=== PATIENT | female | born 1940 | race Caucasian/White ===

== ENCOUNTER → 2017-01-29 | Outpatient (CLI) | payer MEDICARE, BC ==
[~2017-01-29] MED LIST: ALBU1AER INH; ALEV220C; ALPR0.5T3 PO; AMLO5TAB2 PO; AMLO5TAB22 PO; ATEN-102 PO; ATEN50TA PO; CELE40TA PO; CHEL50TA PO; CINN500C13 PO; CINN500C7 PO; CINN500T PO; CITA40TA4 PO; CLON1 PO; CLON1TAB PO; COZA100T PO; CYAN1TAB24 PO; DICL1GEL TOPICAL; DICL1GEL7 TOPICAL; EXCETAB; HYDR-2768 PO; JANU50TA8 PO; LOSA100T2 PO; MUPI2OIN TOPICAL; OMEGCAP19 PO; OMEGCAP21 PO; OMEP20TA39 PO; OMEP40CA2 PO; OXYC-392 PO; POTA75TA2 PO; POTA99TA12 PO; POTA99TA4 PO; SIMV20TA PO; VENL-39 PO; VENL150C39 PO; VENL150T PO; VENL75 PO; VENL75CA44 PO; VENL75TA2 PO; VITA500T49 PO; WALKER WHEELS/F1 MIS; Z.0.WALKERFOLD; ZOCO40TA PO
[2017-01-29 15:00] LABS: AUTOMATED NEUTROPHIL # 10.7 TH/MM3 (1.8-7.7); BASOPHIL # 0.1 TH/MM3 (0-0.2); BASOPHIL % 0.4 % (0.0-2.0); EOSINOPHIL # 0.2 TH/MM3 (0-0.4); EOSINOPHIL % 1.3 % (0.0-4.0); HEMO FLAGS DIFF FINAL; LYMPH % 11.9 % (9.0-44.0); LYMPHOCYTE # 1.6 TH/MM3 (1.0-4.8); MEAN CELL VOLUME 97.4 FL (80.0-100.0); MEAN CORPUSCULAR HEMOGLOBIN 32.5 PG (27.0-34.0); MEAN CORPUSCULAR HGB CONC 33.3 % (32.0-36.0); MONO % 6.1 % (0.0-8.0); NEUT % 80.3 % (16.0-70.0); PLATELET COUNT 260 TH/MM3 (150-450); RED BLOOD COUNT 3.59 MIL/MM3 (4.00-5.30); RED CELL DISTRIBUTION WIDTH 21.6 % (11.6-17.2); WHITE BLOOD COUNT 13.3 TH/MM3 (4.0-11.0)
[2017-01-29 15:21] LABS: BICARBONATE 30.4 MEQ/L (21.0-32.0); POTASSIUM 3.5 MEQ/L (3.5-5.1)
[2017-01-29 16:21] LABS: BACTERIA, URINE RARE /hpf; BLOOD, URINE NEG (NEG); COMMENT (UR) CULT NOT INDICATED; CULTURE IF INDICATED CULT NOT INDICATED; GLUCOSE,URINE 300 mg/dL (NEG); KETONE, URINE NEG (NEG); MUCUS URINE FEW /lpf (OCC); NITRITE,URINE NEG (NEG); PH, URINE 5.5 (5.0-8.5); SQUAMOUS EPITHELIAL CELL URINE 2 /hpf (0-5); URINE COLOR YELLOW (YELLW/STRAW)
== END ==
LOC: CPRE 14:13
PROVIDERS: ATTEND Obstetrics & Gynecology
DX: N95.0 Postmenopausal bleeding (principal); D25.9 Leiomyoma of uterus, unspecified
CPT/HCPCS: 36415; 80048; 81001; 85025

== ENCOUNTER 2017-01-31 10:30 | Observation (INO) | payer MEDICARE, BC ==
[~2017-01-31] VITALS: Ht 157.5 cm; Wt 91.8 kg
[~2017-01-31 10:30] MED LIST changes: -ALBU1AER INH; -ALEV220C; -AMLO5TAB22 PO; -ATEN-102 PO; +BACITRACIN TOP OINT 15 GM TUBE ONE; +BUPIVACAINE LIPOSOME PF 1.3% 20 ML VIAL ONE; -CELE40TA PO; -CINN500C13 PO; -CINN500C7 PO; -CLON1 PO; -COZA100T PO; -CYAN1TAB24 PO; -DICL1GEL7 TOPICAL; -EXCETAB; -HYDR-2768 PO; +LIDOCAINE 1%/EPINEPHrine 1:100,000 SOLN 20 ML VIAL ONE; +LIDOCAINE HCL 1% 50 ML VIAL ONE; -OMEGCAP21 PO; -OMEP20TA39 PO; -OXYC-392 PO; +OXYTOCIN 10 UNIT/ML AMP ONE; -POTA99TA12 PO; -POTA99TA4 PO; -VENL-39 PO; -VENL150C39 PO; -VENL75 PO; -VENL75CA44 PO; -Z.0.WALKERFOLD; -ZOCO40TA PO
--- NOTE | 2017-01-31 11:36 | MH ---
cc: DINA LU DATE OF ADMISSION 01/31/2017 ADMISSION DIAGNOSIS Postmenopausal bleeding. Uterine fibroids. HISTORY OF PRESENT ILLNESS The patient is 76-year-old single white female para 3-0-1-3. She developed vaginal bleeding in October of 2015 and referred to me on 02/21/2016 Dr. Jin. Her Pap smear at that time was normal. Vaginal ultrasound performed on 08/17/2016 showed a uterus that measured 10.6 cm with probable fibroids. Underwent a hysteroscopy, D&C at [facility] in September 11, 2016 that showed benign endometrial tissue and benign ECC. She had persistent bleeding and now is admitted for repeat D&C. PAST MEDICAL HISTORY 1. Her past medical history is extensive. She had procedures that include bladder procedure uplift 1982. 2. She had D&C in 2002. 3. She had total knee right 2000 and 2002. 4. Shoulder repair, right 2007 and 2008 again. 5. She had a heart cath in 2004 and 2011. 6. D&C in 2002. ALLERGIES PENICILLIN , CODEINE, NEURONTIN, LYRICA AND SUDAFED. Past medical illnesses include: 1. Depression. 2. Sleep apnea. 3. Hypothyroidism. 4. Adult onset diabetes. MEDICATIONS She will bring in a list, includes: 1. Atenolol. 2. Omeprazole. 3. Simvastatin. 4. Amlodipine. 5. Losartan. 6. Lorazepam. 7. Voltaren. 8. . 9. Alprazolam. 10. Zofran. 11. Venlafaxine. 12. Potassium. 13. Janumet twice a day for diabetes control. OBSTETRICAL HISTORY Three vaginal deliveries, one spontaneous . SOCIAL HISTORY Retired. Alcohol occasional. Tobacco none. Drugs none. FAMILY HISTORY Noncontributory. PHYSICAL EXAMINATION GENERAL: Reveals an obese white female. VITAL SIGNS: Stable. HEENT: Examination is normal. CHEST: Clear. HEART: Regular rate. BREASTS: Symmetrical. ABDOMEN: Benign. PELVIC: The vagina is atrophic. Cervix normal. Uterus normal size, shape, anterior. Adnexa nonpalpable. Note, she had a nuclear stress test in July that was good and cleared for surgery. ASSESSMENT As above. PLAN She is now admitted for hysteroscopy, dilation and curettage, frozen section and laparoscopy, possible LASH BSO , possible GHASSAN BSO. The patient would like to proceed. MD RICK Dean/SHRUTI /9:04 PM /11:28 AM TAMIKO
[2017-01-31 11:51] VITALS: BP 147/84; PULSE 60; RESP 18; TEMP 97.9; O2SAT 94
[2017-01-31] MEDS ORDERED: ACETAMINOPHEN 1000 MG/100 ML VIAL IV ONE ×2 (12:02→16:17)
[2017-01-31] MEDS ORDERED: CLINDAMYCIN PHOS 600 MG/4 ML VIAL ONE (12:02)
[2017-01-31] MEDS ORDERED: SODIUM CHLORIDE 0.9% INJ 100 ML ONE (12:03)
[2017-01-31] MEDS ORDERED: CLINDAMYCIN 600 MG/NS 100 ML IV SCH ×2 (12:15)
[2017-01-31] MEDS ORDERED: ACETAMINOPHEN 1000 MG/100 ML VIAL IV SCH (12:15)
[2017-01-31] MEDS ORDERED: NEOSTIGMINE 3 MG/3 ML SYR IV ONE (14:10)
[2017-01-31] MEDS ORDERED: PROPOFOL 200 MG/20 ML AMP IV ONE (14:10)
[2017-01-31] MEDS ORDERED: ePHEDrine/NS 25 MG/5 ML SYR IV ONE (14:10)
[2017-01-31] MEDS ORDERED: ONDANSETRON HCL 4 MG/2 ML VIAL IV PUSH ONE (14:10)
[2017-01-31] MEDS ORDERED: fentaNYL CITRATE 250 MCG/5 ML AMP ONE (16:17)
[2017-01-31] MEDS ORDERED: MIDAZOLAM HCL 2 MG/2 ML VIAL ONE (16:17)
[2017-01-31] MEDS ORDERED: DICLOFENAC SODIUM 37.5 MG/ML VIAL IV PUSH ONE (17:57)
[2017-01-31] MEDS ORDERED: ONDANSETRON HCL 4 MG/2 ML VIAL IV PRN (18:30)
[2017-01-31] MEDS ORDERED: HYDROmorphone HCL PF 1 MG/ML VIAL IV PRN (18:30)
[2017-01-31] MEDS ORDERED: ZOLPIDEM TARTRATE 5 MG TAB PO PRN (18:30)
[2017-01-31] MEDS ORDERED: ONDANSETRON ODT 4 MG TAB PO PRN (18:30)
[2017-01-31] MEDS ORDERED: diphenhydrAMINE HCL 25 MG CAP PO PRN (18:30)
[2017-01-31] MEDS ORDERED: SODIUM CHLORIDE 0.9% FLUSH 5 ML FLUSH FLUSH PRN (18:30)
[2017-01-31] MEDS ORDERED: METOCLOPRAMIDE HCL 10 MG/2 ML VIAL IV PUSH PRN (18:30)
[2017-01-31] MEDS ORDERED: PROMETHAZINE HCL 25 MG TAB PO PRN (18:30)
[2017-01-31] MEDS ORDERED: ALPRAZolam 0.5 MG TAB PO PRN (19:15)
[2017-01-31] MEDS ORDERED: clonazePAM 1 MG TAB PO PRN (19:15)
[2017-01-31] MEDS ORDERED: *RESP: ALBUTEROL 2.5 MG/3 ML NEB (PRN) PERIprocedural Use ONLY NEB ONE (19:30)
[2017-01-31] MEDS: D5-1/2 NS + KCL 20 MEQ INJ 1,000 ML IV SCH (19:43)
--- NOTE | 2017-01-31 20:33 | RADRPT ---
EXAM DATE/TIME: 01/31/2017 20:11 [facility] COMPARISON: CHEST SINGLE AP, September 11, 2016, 5:42. INDICATIONS : Shortness of breath post operation. MEDICAL HISTORY : None. SURGICAL HISTORY : None. ENCOUNTER: Initial ACUITY: 1 day PAIN SCORE: 0/10 LOCATION: Bilateral chest FINDINGS: Cardiomegaly. Mild atelectatic changes seen at the left lung base and right perihilar region. Osseous structures demonstrated degenerative changes. No effusions. CONCLUSION: Atelectatic changes are noted. Giovani Starkey MD on January 31, 2017 at 20:31 Board Certified Radiologist. This report was verified electronically.
[2017-01-31 20:37] LABS: BLOOD GAS BASE EXCESS 0.7 mmol/L (-2-2); BLOOD GAS CARBOXYHEMOGLOBIN 1.6 % (0-4); BLOOD GAS HCO3 26 mmol/L (22-26); BLOOD GAS METHEMOGLOBIN 1.1 % (0-2); BLOOD GAS O2 HGB SATURATION 90 % (90-100); BLOOD GAS OXYGEN CONTENT 12.8 Vol % (12.0-20.0); BLOOD GAS PCO2 47 mmHg (38-42); BLOOD GAS PO2 72 mmHg (61-120); BLOOD GAS TOTAL HGB 10.1 G/DL (12.0-16.0); CRITICAL VALUE NO; DRAW SITE LT RADIAL; LITER FLOW 4 L/M; NUMBER OF ARTERIAL PUNCTURES 1; OXYGEN DEVICE NASAL CANNULA; STAT YES; TEMP CORR TO 98.6
[2017-01-31] MEDS: ACETAMINOPHEN 1000 MG/100 ML VIAL IV SCH (20:40)
[2017-01-31] MEDS: DICLOFENAC SODIUM 37.5 MG/ML VIAL IV PUSH SCH (20:41)
[2017-01-31 21:01] LABS: HEMATOCRIT 33.2 % (35.0-46.0); REVIEW FLAG FINAL
[2017-01-31 21:25] VITALS: BP 83/43; PULSE 72; RESP 16; TEMP 95.7; O2SAT 95
[2017-01-31 21:40] VITALS: BP 105/49
[2017-01-31 21:45] VITALS: O2SAT 94
[2017-01-31] MEDS: CITALOPRAM HYDROBROMIDE 40 MG TAB PO SCH (23:28)
[2017-01-31] MEDS: VENLAFAXINE HCL XR 75 MG CAP PO SCH (23:29)
[2017-01-31] MEDS: SODIUM CHLORIDE 0.9% FLUSH 5 ML FLUSH FLUSH SCH (23:29)
[2017-01-31] MEDS: ATENOLOL 50 MG TAB PO SCH (23:30)
[2017-01-31] MEDS ORDERED: GLUCAGON 1 MG/ML VIAL OTHER PRN (23:30)
[2017-01-31] MEDS ORDERED: DEXTROSE 50% IN WATER 50 ML VIAL(D50) IV PUSH PRN (23:30)
[2017-02-01] VITALS (8 sets, daily range): BP systolic 101–172; BP diastolic 49–84; PULSE 60–84; RESP 16–20; TEMP 95.6–98.4; O2SAT 90–95
[2017-02-01] MEDS: MEDIUM DOSE INSULIN NOVOLIN REGULAR SUPPLEMENTAL SCALE SQ SCH ×5 (00:01→21:57)
[2017-02-01] MEDS: DICLOFENAC SODIUM 37.5 MG/ML VIAL IV PUSH SCH ×3 (00:30→12:32)
[2017-02-01] MEDS: D5-1/2 NS + KCL 20 MEQ INJ 1,000 ML IV SCH ×3 (02:48→20:50)
[2017-02-01] MEDS: ACETAMINOPHEN 1000 MG/100 ML VIAL IV SCH ×2 (02:48→12:32)
[2017-02-01] MEDS: DOCUSATE SODIUM 100 MG CAP PO SCH ×2 (05:44→20:47)
[2017-02-01 08:10] LABS: AUTOMATED NEUTROPHIL # 10.7 TH/MM3 (1.8-7.7); BASOPHIL # 0.1 TH/MM3 (0-0.2); BASOPHIL % 0.4 % (0.0-2.0); EOSINOPHIL # 0.1 TH/MM3 (0-0.4); EOSINOPHIL % 0.9 % (0.0-4.0); HEMATOCRIT 29.2 % (35.0-46.0); HEMO FLAGS DIFF FINAL; LYMPH % 12.5 % (9.0-44.0); LYMPHOCYTE # 1.7 TH/MM3 (1.0-4.8); MEAN CELL VOLUME 99.1 FL (80.0-100.0); MEAN CORPUSCULAR HEMOGLOBIN 32.8 PG (27.0-34.0); MEAN CORPUSCULAR HGB CONC 33.1 % (32.0-36.0); MONO % 7.1 % (0.0-8.0); NEUT % 79.1 % (16.0-70.0); PLATELET COUNT 216 TH/MM3 (150-450); RED BLOOD COUNT 2.94 MIL/MM3 (4.00-5.30); RED CELL DISTRIBUTION WIDTH 21.8 % (11.6-17.2); WHITE BLOOD COUNT 13.6 TH/MM3 (4.0-11.0)
[2017-02-01 08:43] LABS: BICARBONATE 26.9 MEQ/L (21.0-32.0); POTASSIUM 3.1 MEQ/L (3.5-5.1)
[2017-02-01] MEDS: POTASSIUM CHLORIDE 10 MEQ CONTROLLED RELEASE TAB PO SCH (09:56)
[2017-02-01] MEDS: PANTOPRAZOLE SOD 40 MG DELAYED RELEASE TAB PO SCH (09:56)
[2017-02-01] MEDS: LOSARTAN 50 MG TAB PO SCH (10:00)
[2017-02-01] MEDS: ATENOLOL 50 MG TAB PO SCH ×2 (10:00→20:49)
[2017-02-01] MEDS: SODIUM CHLORIDE 0.9% FLUSH 5 ML FLUSH FLUSH SCH ×2 (10:00→20:50)
[2017-02-01] MEDS: HYDROCHLOROTHIAZIDE 25 MG TAB PO SCH (10:00)
[2017-02-01] MEDS: amLODIPine BESYLATE 5 MG TAB PO SCH (10:00)
[2017-02-01] MEDS ORDERED: POTASSIUM CHLORIDE 25 MEQ EFFERVESCENT TAB PO ONE (11:15)
--- NOTE | 2017-02-01 12:47 | MB ---
cc: TI HARRIS MD DATE OF CONSULTATION: 02/01/2017 1942 REASON FOR CONSULTATION Medical management. HISTORY OF PRESENT ILLNESS This is a 76-year-old white female who is status post repeat D&C done on 01/31/2017. She is currently resting in the bed, alert, oriented and a fair historian. The patient is noted to have sleep apnea with COPD. She is currently wearing a C-PAP at night for her rest. She does have some exertional shortness of breath but none at rest. The patient is alert, can answer simple questions, a fair historian. According to the record the patient has had vaginal bleeding since 2014 with a normal Pap smear. She had a vaginal ultrasound which showed probable fibroids, had a D&C in August of 2016 and has continued with persistent bleeding. [facility] hospitalists will be involved for her medical needs. PAST MEDICAL HISTORY 1. Degenerative joint disease. 2. Osteoarthritis. 3. Cardiovascular disorders. 4. COPD. 5. Obstructive sleep apnea. 6. Hypothyroidism. 7. Diabetes mellitus type 2. 8. Depression. 9. Anxiety. PAST SURGICAL HISTORY 1. Right total knee. 2. Shoulder repair. 3. Multiple heart caths. 4. D&C, multiple. 5. Bladder up lift in 1982. ALLERGIES GABAPENTIN, LYRICA, NEURONTIN, PENICILLIN, SUDAFED AND TYLENOL #3. MEDICATIONS Medications listed in the record: 1. Atenolol. 2. Omeprazole. 3. Simvastatin. 4. Amlodipine. 5. Losartan. 6. Lorazepam. 7. Voltaren. 8. Xanax. 9. Zofran. 10. Venlafaxine. 11. Potassium. 12. Januvia. SOCIAL HISTORY No tobacco, no illicit drugs. Rare social alcohol. The patient is retired. REVIEW OF SYSTEMS A 12-point review was done, some information limited due to the patient's fair history given. Currently she has some exertional dyspnea and none at rest. She is status post surgical event as listed, otherwise systems are negative. PHYSICAL EXAMINATION VITAL SIGNS: Temperature is 97.5, pulse 63, respirations 20, blood pressure 114/57, O2 sat 94, now on 2 liters nasal cannula. GENERAL: Obese, white female, looks to be her stated age, resting in the bed. SKIN: Skin is pink, warm and dry. HEENT: Atraumatic, normocephalic. No scleral icterus. PERRLA. Mucous membranes are moist. NECK: Neck is supple. HEART: Heart sounds, S1-S2, regular rate and rhythm. No murmurs, rubs or gallops appreciated. PULMONARY: Lung sounds are essentially clear anteriorly and posteriorly in her upper lobes. Decreased breath sounds and low volumes noted lower lobes. ABDOMEN: Abdomen is round, soft, nontender, nondistended. Active bowel sounds. MUSCULOSKELETAL: She can move her extremities with purpose. 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 NEUROLOGIC: She is alert, a fair historian. Speech is clear. PSYCHIATRIC: Appropriate mood and affect. DIAGNOSTIC DATA Abnormals include white count 13.6, RBC 2.94, hemoglobin 9.7, hematocrit 29.2, normal platelet count at 216, neutrophil absolute 79.1. Chemistry sodium 142, potassium 3.1, chloride 103, BUN 23, creatinine 0.94. Random glucose 135, calcium 7.8. IMAGING STUDIES Chest x-ray done on the shows some atelectasis. ASSESSMENT Diabetes mellitus, mildly uncontrolled, hypokalemia, COPD, acute kidney injury with dehydration, GERD, anxiety. PLAN Our plan is to monitor her labs and her vital signs and any abnormal labs that need to be treated. This a.m. we will treat her hypokalemia with potassium p.o. and recheck her labs in the morning. The patient is on Protonix p.o. daily, regular insulin with Accu-Cheks and sliding scale as warranted. Her medications have been reconciled and continued. She received Klonopin and Xanax p.r.n., pain management. The patient is status post D&C. 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 Please note that the patient did have a nuclear stress test back in July that was within normal limits. This is part of what cleared her for the surgery. We will follow. Dictated by: LORRIE Wyatt MD LAURYN Chiu/RUDDY /11:05 AM /12:43 PM pt is seen & examined d/w PT d/w Perla thank for the consult see orders see consult will f/u Ti Harris MD Feb 01, 2017 17:27 MTDD
[2017-02-01] MEDS ORDERED: ALPRAZolam 0.5 MG TAB PO PRN (14:45)
[2017-02-01] MEDS: VENLAFAXINE HCL XR 75 MG CAP PO SCH ×2 (16:25→20:49)
--- NOTE | 2017-02-01 17:27 | HHI.PR ---
Objective Objective Results - Vital Signs Date Time Temp Pulse Resp B/P Pulse Ox O2 Delivery O2 Flow Rate FiO2 02/01/17 16:33 16 02/01/17 15:50 98.4 80 20 135/73 90 02/01/17 15:35 16 02/01/17 15:35 16 02/01/17 11:50 97.0 71 20 101/54 95 02/01/17 10:36 93 Nasal Cannula 2.00 02/01/17 07:50 97.5 63 20 114/57 94 02/01/17 04:00 95.6 60 16 111/63 94 02/01/17 00:00 97.1 73 16 121/49 95 01/31/17 21:45 94 Nasal Cannula 2.00 01/31/17 21:40 105/49 01/31/17 21:25 95.7 72 16 83/43 95 01/31/17 20:45 98.3 68 15 124/72 96 Nasal Cannula 4 01/31/17 20:30 71 16 112/57 96 Nasal Cannula 4 01/31/17 20:15 69 12 112/57 94 Nasal Cannula 4 01/31/17 20:00 70 12 129/50 93 Nasal Cannula 4 01/31/17 19:45 69 14 122/71 90 Nasal Cannula 4 01/31/17 19:30 68 15 131/64 88 Aerosol Mask 01/31/17 19:15 86 16 126/63 89 Simple Mask 8 01/31/17 19:04 98.2 120 15 125/67 87 Simple Mask 8 I/O 01/31/17 01/31/17 01/31/17 02/01/17 02/01/17 02/01/17 07:00 15:00 23:00 07:00 15:00 23:00 Intake Total 1900 ml 950 ml 461 ml Output Total 450 ml 0 ml 280 ml Balance 1450 ml 950 ml 461 ml -280 ml Intake Oral 200 ml 150 ml 461 ml IV Total 800 ml Other 1700 ml Output Urine Total 300 ml 0 ml 280 ml Estimated Blood Loss 50 ml Other 100 ml Bladder Scan Volume Amount 256 ml # Bowel Movements 0 0 Result Diagram: 02/01/17 0625 02/01/17 0625 Other Results Laboratory Tests Test 01/31/17 01/31/17 02/01/17 20:16 20:25 06:25 Hemoglobin 10.8 9.7 Hematocrit 33.2 29.2 Blood Gas Puncture Site LT RADIAL Blood Gas Patient Temperature 98.6 Blood Gas HCO3 26 Blood Gas Base Excess 0.7 Blood Gas Oxygen Saturation 90 Arterial Blood pH 7.35 Arterial Blood Partial 47 Pressure CO2 Arterial Blood Partial 72 Pressure O2 Arterial Blood Oxygen Content 12.8 Arterial Blood 1.6 Carboxyhemoglobin Arterial Blood Methemoglobin 1.1 Blood Gas Hemoglobin 10.1 Oxygen Delivery Device NASAL CANNULA Blood Gas Liter Flow 4 White Blood Count 13.6 Red Blood Count 2.94 Mean Corpuscular Volume 99.1 Mean Corpuscular Hemoglobin 32.8 Mean Corpuscular Hemoglobin 33.1 Concent Red Cell Distribution Width 21.8 Platelet Count 216 Mean Platelet Volume 9.5 Neutrophils (%) (Auto) 79.1 Lymphocytes (%) (Auto) 12.5 Monocytes (%) (Auto) 7.1 Eosinophils (%) (Auto) 0.9 Basophils (%) (Auto) 0.4 Neutrophils # (Auto) 10.7 Lymphocytes # (Auto) 1.7 Monocytes # (Auto) 1.0 Eosinophils # (Auto) 0.1 Basophils # (Auto) 0.1 CBC Comment DIFF FINAL Differential Comment Sodium Level 142 Potassium Level 3.1 Chloride Level 103 Carbon Dioxide Level 26.9 Anion Gap 12 Blood Urea Nitrogen 23 Creatinine 0.94 Estimat Glomerular Filtration 58 Rate Random Glucose 135 Calcium Level 7.8 Physical Exam Physical Exam pt is seen & examined d/w PT d/w Perla thank for the consult see orders see consult will f/u Phoebe Harris MD Feb 01, 2017 17:27
[2017-02-01] MEDS: metFORMIN HCL 500 MG TAB PO SCH (20:48)
[2017-02-01] MEDS: CITALOPRAM HYDROBROMIDE 40 MG TAB PO SCH (20:49)
[2017-02-01] MEDS ORDERED: NON-FORMULARY DRUG (Sitagliptin-Metformin (Janumet) 1 TAB) PO SCH (21:00)
[2017-02-01] MEDS ORDERED: VENLAFAXINE HCL XR 75 MG CAP PO SCH (21:00)
[2017-02-01] MEDS ORDERED: ATENOLOL 50 MG TAB PO SCH (21:00)
[2017-02-01] MEDS ORDERED: CITALOPRAM HYDROBROMIDE 40 MG TAB PO SCH (21:00)
[2017-02-02] VITALS: BP 107/60; PULSE 72; RESP 18; TEMP 97.3; O2SAT 91
[2017-02-02] MEDS: ACETAMINOPHEN 1000 MG/100 ML VIAL IV SCH (03:05)
[2017-02-02 04:00] VITALS: BP 119/57; PULSE 65; RESP 18; TEMP 96.7; O2SAT 90
[2017-02-02] MEDS: DOCUSATE SODIUM 100 MG CAP PO SCH (05:52)
[2017-02-02] MEDS: MEDIUM DOSE INSULIN NOVOLIN REGULAR SUPPLEMENTAL SCALE SQ SCH ×2 (06:17→13:00)
[2017-02-02 07:47] LABS: BICARBONATE 26.6 MEQ/L (21.0-32.0); POTASSIUM 4.1 MEQ/L (3.5-5.1)
[2017-02-02 08:00] VITALS: BP 136/83; PULSE 71; RESP 16; TEMP 97.1; O2SAT 92
[2017-02-02] MEDS: amLODIPine BESYLATE 5 MG TAB PO SCH (08:40)
[2017-02-02] MEDS: ATENOLOL 50 MG TAB PO SCH (08:40)
[2017-02-02] MEDS: LOSARTAN 50 MG TAB PO SCH (08:40)
[2017-02-02] MEDS: POTASSIUM CHLORIDE 10 MEQ CONTROLLED RELEASE TAB PO SCH (08:40)
[2017-02-02] MEDS: metFORMIN HCL 500 MG TAB PO SCH (08:40)
[2017-02-02] MEDS: HYDROCHLOROTHIAZIDE 25 MG TAB PO SCH (08:40)
[2017-02-02] MEDS: VENLAFAXINE HCL XR 75 MG CAP PO SCH (08:41)
[2017-02-02] MEDS: PANTOPRAZOLE SOD 40 MG DELAYED RELEASE TAB PO SCH (08:41)
[2017-02-02] MEDS: SODIUM CHLORIDE 0.9% FLUSH 5 ML FLUSH FLUSH SCH (08:46)
[2017-02-02] MEDS ORDERED: VENLAFAXINE HCL XR 75 MG CAP PO SCH (09:00)
[2017-02-02] MEDS ORDERED: clonazePAM 1 MG TAB PO SCH (09:00)
[2017-02-02] MEDS ORDERED: PRAVASTATIN SOD 40 MG TAB PO SCH (09:00)
[2017-02-02] MEDS ORDERED: amLODIPine BESYLATE 5 MG TAB PO SCH (09:00)
[2017-02-02] MEDS ORDERED: NON-FORMULARY DRUG (Zinc Gluconate (Zinc) 1 TAB) PO SCH (09:00)
[2017-02-02] MEDS ORDERED: NON-FORMULARY DRUG (Losartan-Hydrochlorothiazide 1 TAB) PO SCH (09:00)
[2017-02-02 09:50] VITALS: O2SAT 94
[2017-02-02 12:00] VITALS: BP 135/65; PULSE 77; RESP 16; TEMP 96.5; O2SAT 94
--- NOTE | 2017-02-02 12:34 | HHI.FF ---
Face to Face Verification Diagnosis: (1) Diabetes 1.5, managed as type 2 (2) COPD (chronic obstructive pulmonary disease) (3) Anxiety (4) Hypokalemia (5) ROBERT (acute kidney injury) (6) GERD (gastroesophageal reflux disease) (7) Debility Physical Therapy Order: Evaluate and Treat, Improve ambulation, Strength and gait training Occupational Therapy Order: Evaluate and Treat, Improve ADL Home Health Nursing Order: Signs/symptoms of disease process Diabetic education Oxygen administration education Nursing assessment with vital signs Instructions: And some questions about disease process Review meds if needed monitor vital signs and O2 sats I have seen patient Hanane Kam on 02/02/17. My clinical findings support the need for the requested home health care services because: Multi-medical comorbidities and debility Ltd mobility - disease progression Deconditioned w/ increased weakness I certify that my clinical findings support that this patient is homebound because: Of her multi-medical comorbidities and debility. Monitoring of vital signs and encouragement Impaired cognitive ability/safety Unsteady gait/balance Perla Sheppard Feb 02, 2017 12:34
[2017-02-02] MEDS ORDERED: OXYC-392 PO (13:12)
--- NOTE | 2017-02-02 13:13 | HHI.FF ---
Face to Face Verification Diagnosis: (1) Diabetes 1.5, managed as type 2 (2) COPD (chronic obstructive pulmonary disease) (3) Anxiety (4) Debility Physical Therapy Order: Evaluate and Treat, Improve ambulation, Strength and gait training I have seen patient Hanane Kam on 02/02/17. My clinical findings support the need for the requested home health care services because: Ltd mobility - disease progression Deconditioned w/ increased weakness I certify that my clinical findings support that this patient is homebound because: Post-op weakness Unsteady gait/balance Phoebe Harris MD Feb 02, 2017 13:13
--- NOTE | 2017-02-02 13:35 | HHI.PR ---
Subjective History of Present Illness feels better pain is in control/pain meds are helping No N/V appetite is ok little weak / need some assistance w ambulation asking for HHC at home offers no other c/o daughter is at bedside (Phoebe Harris MD) Subjective Remarks Patient sitting up on side of bed Alert Cooperative No shortness of breath Hoping to go home (Perla Sheppard) Review of Systems Constitutional Constitutional: Weakness (improved, no shortness of breath. 10 point ROS done , positives noted are shortness of breath, exertional otherwise systems are negative) (Perla Sheppard) Vitals/Results Intake & Output 02/01/17 02/01/17 02/02/17 15:00 23:00 07:00 Intake Total 461 ml 1810 ml 550 ml Output Total 0 ml 280 ml 600 ml Balance 461 ml 1530 ml -50 ml Intake Oral 461 ml IV Total 1810 ml 550 ml Output Urine Total 0 ml 280 ml 600 ml Bladder Scan Volume Amount 256 ml # Bowel Movements 0 Vital Signs Vital Signs Date Time Temp Pulse Resp B/P Pulse Ox O2 Delivery O2 Flow Rate FiO2 02/02/17 12:00 96.5 77 16 135/65 94 02/02/17 09:50 94 21 02/02/17 08:00 97.1 71 16 136/83 92 02/02/17 04:00 96.7 65 18 119/57 90 02/02/17 00:00 97.3 72 18 107/60 91 02/01/17 20:49 96.9 84 16 172/84 94 02/01/17 20:01 94 21 02/01/17 16:33 16 02/01/17 15:50 98.4 80 20 135/73 90 02/01/17 15:35 16 02/01/17 15:35 16 (Phoebe Harris MD) CBC/BMP: 02/01/17 0625 02/02/17 0619 Lab Results Laboratory Tests Test 02/02/17 06:19 Sodium Level 140 MEQ/L Potassium Level 4.1 MEQ/L Chloride Level 104 MEQ/L Carbon Dioxide Level 26.6 MEQ/L Anion Gap 9 MEQ/L Blood Urea Nitrogen 21 MG/DL Creatinine 0.91 MG/DL Estimat Glomerular Filtration 60 ML/MIN Rate Random Glucose 134 MG/DL Calcium Level 8.0 MG/DL (Phoebe Harris MD) Physical Exam General General Appearance: No Acute Distress, Comfortable, Obese (Phoebe Harris MD) General Appearance: Well Developed, Well Nourished, No Acute Distress, Comfortable Appearance Remarks Uses BiPAP at night (Perla Sheppard) Eyes Eye Exam: Pupils Equal, Sclera White, Extraocular Movement Intact (Phoebe Harris MD) Eye Exam: Pupils Equal, Pupils Reactive (Perla Sheppard) Ears & Nose Ears & Nose Exam: Nasal Mucosa [place] (Phoebe Harris MD) Ears & Nose Exam: Nasal Mucosa [place] (Perla Sheppard) Throat Throat Exam: Oral Mucosa [place] & Moist (Phoebe Harris MD) Throat Exam: Oral Mucosa [place] & Moist (Perla Sheppard) Neck Neck Exam: Neck Supple (Phoebe Harris MD) Neck Exam: Neck Supple (Perla Sheppard) Pulmonary Resp Exam: Clear Bilaterally, Breath Sounds Equal, No Distress (Phoebe Harris MD) Resp Exam: Diminished Breath Sounds (at bases, otherwise clear) (Perla Sheppard) Cardiology CV Exam: Regular, Normal Sinus Rhythm (Phoebe Harris MD) CV Exam: Regular (Perla Sheppard) Gastrointestinal/Abdomen GI Exam: Soft, Bowel Sounds Present (Phoebe Harris MD) GI Exam: Soft, Non-Tender, Bowel Sounds Present (Perla Sheppard) Genitourinary Exam: Clear Urine (Perla Sheppard) Musculoskeletal MS Exam: Joints Intact (Perla Sheppard) Integumentary Skin Exam: Warm, Intact (Phoebe Harris MD) Skin Exam: Warm, Dry, Intact (Perla Sheppard) Extremeties Extremities Exam: No Edema, Pedal Pulses Palpable (Phoebe Harris MD) Extremities Exam: No Edema (Perla Sheppard) Neurologic Neuro Exam: Alert, Awake, Oriented, Speech Clear, Moving All Extremities (Phoebe Harris MD) Neuro Exam: Alert, Awake, Oriented, Speech Clear, Moving All Extremities ( Perla Sheppard) Assessment/Plan Assessment/Plan ASSESSMENT s/p p-ost menopausal bleeding/ Uterine Fibroids s/p laparoscopic Hysterectomy w BSO anemia Diabetes mellitus, mildly uncontrolled, hypokalemia, COPD, acute kidney injury with dehydration, GERD, anxiety. PLAN analgesic diabetic diet accu checks qac & qhs w SSI BP control pepcid stool softener/prn laxative cont current tx medically stable for d/c d/c home w [facility] dw PT & daughter will sign off/ available prn (Phoebe Harris MD) Assessment/Plan Stable for discharge Patient uses BiPAP at night, no shortness of breath at rest Labs and vital signs reviewed., hemoglobin 9.7, stable Patient will follow-up with PCP, [employer] after discharge (Perla Sheppard) Phoebe Harris MD Feb 02, 2017 13:35 Perla Sheppard Feb 02, 2017 14:57
--- NOTE | 2017-02-03 12:41 | MP ---
cc: DINA LU DATE OF SURGERY: 01/31/2017 PREOPERATIVE DIAGNOSIS: Postmenopausal bleeding, uterine fibroids. POSTOPERATIVE DIAGNOSIS: Postmenopausal bleeding, uterine fibroids. OPERATIVE PROCEDURE PERFORMED: D&C, frozen section followed by a laparoscopic supracervical hysterectomy and bilateral salpingo-oophorectomy. SURGEON: Dina Lu MD. GENERAL COUNSEL: LORRIE Hager. ANESTHESIA: General ET ESTIMATED BLOOD LOSS FOR THE PROCEDURE: About 50 cc. FLUIDS: 1.3 liters of crystalloid. DESCRIPTION OF THE PROCEDURE IN DETAIL / OBJECTIVE FINDINGS: Following induction of adequate general endotracheal anesthesia, the patient was prepped and draped supine on the operating table in the dorsal lithotomy position in the usual sterile fashion with the bladder being drained by Purcell catheterization. Examination under anesthesia revealed about a 12 week sized anterior uterus. A heavy weighted speculum was placed in the posterior fornix of the vagina. The anterior lip of the cervix was grasped with a single-tooth tenaculum. Cervix and uterus sounded to 10 cm. The cervix was then dilated with a #18 Hanks dilator. Endocervical curettings were obtained with a small serrated curette for permanent study and endometrium with a small sharp curette for frozen section. The instruments were removed. The operators gloves were changed. The abdomen was opened through a 3 cm curving infraumbilical incision using a knife to cut down through the skin to the fascia. The fascia was opened transversely, stripped from the muscles, the rectus muscle in the midline and the peritoneum opened sharply without incident. The GelPort was placed. Laparoscope inserted. A #5 port was placed in the left lower quadrant and the air seal port in the right lower quadrant. The uterus was about 12 weeks sized, multiple fibroids. There were adhesions of the bladder, peritoneum to the dome of the uterus. These were lysed sharply with the harmonic scalpel. The cul-de-sacs were clear. The liver edge was normal. Working first on the left, the Harmonic scalpel was used to take the left utero-ovarian pedicle, left round ligament, left broad ligament and left sided bladder flap and the left uterine vessels with the same on the right. The Harmonic scalpel was used to amputate the fundus from the cervix after frozen section returned benign. The fundus was extracted intact in a pouch through the GelPort site. Each tube and ovary was taken, first from the left and then from the right with the Harmonic scalpel and extracted intact through the GelPort site. Irrigation was now performed. Low pressure tests were done in the Trendelenburg position and there was no bleeding. The ureters were inspected for good peristalsis. Low pressure test revealed no bleeding so the operative sites were coated with thrombin tissue sealer. The scope was removed. The GelPort was removed. The peritoneum was sutured with running 2-0 Vicryl, the fascia with a running locking stitch of #0 Vicryl corner to midline and tied, the subcutaneous with running 3-0 Vicryl and the skin with running subcuticular 3-0 Monocryl. The scope was now reinserted through the lower port site and used to inspect the GelPort site which was well closed with no bleeding and no entrapment. The pelvis was inspected. There was no bleeding. The scope was removed. The ports were removed and the wound was sutured with 3-0 Monocryl. Dermabond applied. All counts were correct. The patient was taken out of the stirrups and she was awakened and taken to the recovery room in good condition. MD RICK Dean/FABIAN /6:32 PM /12:25 PM
--- NOTE | 2017-02-13 13:37 | MD ---
cc: DINA LU M.D. ADMISSION DATE: 01/31/2017 DISCHARGE DATE: 02/02/2017 ADMISSION DIAGNOSES Postmenopausal bleeding. Uterine fibroids. POSTOPERATIVE DIAGNOSES Postmenopausal bleeding. Uterine fibroids. Endometrial polyps. Adenomyosis. PROCEDURE D&C, frozen section followed by SIMIN and DAVIDO on 01/31/2017. HISTORY OF PRESENT ILLNESS A 76-year-old single white female para 3-0-1-3, has had vaginal bleeding since October of 2015. She was seen by me on 02/21/2016, Pap was normal. Ultrasound showed enlarged uterus with fibroids. Hysteroscopy and D&C at [facility] on 09/11/2016 returned benign. She has continued bleeding. HOSPITAL COURSE She was admitted, underwent the above-mentioned procedures, had gradual advancement of diet and activity. She had bladder atony. She was seen by the hospitalist. She was discharged home in excellent condition on 02/02/2017, advised NPV, light activity and return to see me in two weeks. She will have home health care. She will take her routine meds at home, was given prescription for Percocet 5, 1-2 p.o. q.4 hours p.r.n. pain, #60; and Zofran ODT 8 mg p.o. q.8 hours p.r.n. nausea and vomiting, #15. Dina Lu MD JAW/SSB /6:49 AM /1:32 PM
== END 2017-02-02 15:07 | disposition home or self-care (01) ==
LOC: HSDC 10:30 → HSDI 18:27 → HOCA 21:02
PROVIDERS: ADMIT Obstetrics & Gynecology; ATTEND Obstetrics & Gynecology
DX: D25.9 Leiomyoma of uterus, unspecified (principal); N83.202 Unspecified ovarian cyst, left side; N83.201 Unspecified ovarian cyst, right side; N95.0 Postmenopausal bleeding; E87.6 Hypokalemia; N17.9 Acute kidney failure, unspecified; E86.0 Dehydration; K21.9 Gastro-esophageal reflux disease without esophagitis; F41.9 Anxiety disorder, unspecified; E11.65 Type 2 diabetes mellitus with hyperglycemia; N84.0 Polyp of corpus uteri; N80.0 Endometriosis of uterus; F32.9 Major depressive disorder, single episode, unspecified; E03.9 Hypothyroidism, unspecified; E66.9 Obesity, unspecified; G47.33 Obstructive sleep apnea (adult) (pediatric); J44.9 Chronic obstructive pulmonary disease, unspecified; Z79.899 Other long term (current) drug therapy; Z68.37 Body mass index [BMI] 37.0-37.9, adult; Z88.0 Allergy status to penicillin; Z88.2 Allergy status to sulfonamides; Z88.1 Allergy status to other antibiotic agents; Z88.8 Allergy status to other drugs, medicaments and biological substances
CPT/HCPCS: 00840; 36600; 58542; 71010; 80048; 82805; 82948; 85014; 85018; 85025; 88305; 88307; 88311; 88331; 94150; 94664; C9290; G0378; J0131; J1130; J2250; J2405; J2710; J3010; J3480; J7613; J2590

== ENCOUNTER → 2017-02-20 | Outpatient (CLI) | payer MEDICARE, BC ==
[~2017-02-20] MED LIST changes: -BACITRACIN TOP OINT 15 GM TUBE ONE; -BUPIVACAINE LIPOSOME PF 1.3% 20 ML VIAL ONE; +CINN500C13 PO; -CLON1TAB PO; +CYAN1TAB24 PO; +DICL1GEL7 TOPICAL; -LIDOCAINE 1%/EPINEPHrine 1:100,000 SOLN 20 ML VIAL ONE; -LIDOCAINE HCL 1% 50 ML VIAL ONE; +OXYC-392 PO; -OXYTOCIN 10 UNIT/ML AMP ONE; +POTA99TA4 PO; +VENL150C39 PO; +VENL75CA44 PO
[2017-02-20 15:01] LABS: ALT (GPT) 25 U/L (10-53); ANION GAP 10 MEQ/L (5-15); AST (GOT) 16 U/L (15-37); BICARBONATE 31.1 MEQ/L (21.0-32.0); BLOOD UREA NITROGEN 24 MG/DL (7-18); CHLORIDE 104 MEQ/L (98-107); GLOMERULAR FILTRATION RATE 58 ML/MIN (>89); GLUCOSE,FASTING 146 MG/DL (74-99); POTASSIUM 3.7 MEQ/L (3.5-5.1); SODIUM (NA) 145 MEQ/L (136-145)
[2017-02-20 15:10] LABS: ALKALINE PHOSPHATASE 80 U/L (45-117); FREE T4 1.01 NG/DL (0.76-1.46); HDL CHOLESTEROL 43.3 MG/DL (40.0-60.0); LDL CHOLESTEROL 70 MG/DL (0-99); TOTAL BILIRUBIN ADULT 0.6 MG/DL (0.2-1.0)
[2017-02-20 16:56] LABS: HEMOGLOBIN A1a 1.3 %; HEMOGLOBIN A1b 2.1 %; HEMOGLOBIN Ao 82.8 %; HEMOGLOBIN LA1C 2.3 %; HEMOGLOBIN P3 4.1 %
== END ==
LOC: ELAB 11:42
PROVIDERS: ATTEND Internal Medicine Endocrinology, Diabetes & Metabolism
DX: E03.9 Hypothyroidism, unspecified (principal); E11.9 Type 2 diabetes mellitus without complications; E55.9 Vitamin D deficiency, unspecified; I10 Essential (primary) hypertension; E78.5 Hyperlipidemia, unspecified
CPT/HCPCS: 36415; 80053; 80061; 82306; 83036; 84439; 84443

== ENCOUNTER 2017-04-17 15:54 | Inpatient (IN) | payer MEDICARE, BC ==
[2017-04-17] VITALS (11 sets, daily range): BP systolic 91–159; BP diastolic 52–96; PULSE 86–137; RESP 20–28; TEMP 98–100.2; O2SAT 93–100
[~2017-04-17] VITALS: Ht 157.5 cm; Wt 96.4 kg
[~2017-04-17 15:54] MED LIST changes: -CINN500C13 PO; -CYAN1TAB24 PO; -DICL1GEL7 TOPICAL; -POTA99TA4 PO; -VENL150C39 PO; -VENL75CA44 PO
[2017-04-17] MEDS ORDERED: SODIUM CHLOR 0.9% 1000 ML INJ 1,000 ML IV ONE ×5 (16:30→20:37)
--- NOTE | 2017-04-17 16:37 | RADRPT ---
EXAM DATE/TIME: 04/17/2017 16:24 [facility] COMPARISON: CHEST SINGLE AP, September 11, 2016, 5:42. CHEST SINGLE AP, January 31, 2017, 20:11. INDICATIONS : Shortness of breath, nausea, vomiting. MEDICAL HISTORY : Hypertension. Diabetes mellitus type II. SURGICAL HISTORY : None. ENCOUNTER: Initial ACUITY: 1 day PAIN SCORE: 0/10 LOCATION: Bilateral chest FINDINGS: Portable AP view of the chest demonstrates a normal-sized cardiac silhouette. There is a retrocardiac air-containing mass. Linear opacities are present at both lung bases. No pleural effusion, airspace consolidation, or pneumothorax is visualized. The bones and soft tissues demonstrate no acute finding . CONCLUSION: 1. Atelectasis at both lung bases. No acute cardiopulmonary abnormality is identified. 2. Large hiatal hernia. Osvaldo Santana MD on April 17, 2017 at 16:34 Board Certified Radiologist. This report was verified electronically.
--- NOTE | 2017-04-17 16:40 | PD ---
HPI Chief Complaint: vomiting Time Seen by Provider: 16:06 Travel History International Travel<30 days: No Contact w/Intl Traveler<30days: No Traveled to known affect area: No History of Present Illness HPI 76-year-old female presents by ambulance with shortly prior to arrival while she was at [facility] getting her nails done she developed vomiting and shortness of breath. She states she had 4 episodes of vomiting. She was tachycardic in route in the 130s. Her blood pressures were stable till when she got here her last blood pressure was a systolic of 70. She was given 4 mg of Zofran. Patient denies any significant pain, fever or other complaints. She states when she originally went to [facility] she had no complaints and felt great. Onset: sudden Duration: 1/2 hour Location: generalized Quality: nonbloody Severity: 4 episodes Context:by ambulance Timing:Intermittent Modifying Factors:worse with movement Associated sign and symptoms: short of breath PFSH Past Medical History Hx Anticoagulant Therapy: Yes (ASPIRIN 81 DAILY) Arthritis: Yes (osteo-arthritis) Asthma: Yes Autoimmune Disease: No Blood Disorders: No Anxiety: Yes Depression: Yes Heart Rhythm Problems: No Cancer: No Cardiovascular Problems: Yes (ENLARGED HEART) High Cholesterol: Yes Chest Pain: No Congestive Heart Failure: No COPD: No Cerebrovascular Accident: No Diabetes: Yes Patient Takes Glucophage: No Diminished Hearing: No Endocrine: Yes Gastrointestinal Disorders: Yes (UMBILICAL HERNIA) GERD: Yes Glaucoma: No Genitourinary: No Headaches: Yes Hepatitis: No Hiatal Hernia: No Hypertension: Yes Immune Disorder: No Kidney Stones: Yes (years ago) Musculoskeletal: Yes (OA) Neurologic: Yes (NEUROPATHY, BACK AND NECK PAIN) Psychiatric: Yes (ANXIETY, DEPRESSION) Reproductive: Yes Respiratory: Yes (ASTHMA ) Migraines: Yes Renal Failure: No Seizures: No Sickle Cell Disease: No Thyroid Disease: No Ulcer: No Tetanus Vaccination: > 5 Years Influenza Vaccination: Yes ?: Not Menopausal: Yes Past Surgical History Abdominal Surgery: No AICD: No Cardiac Surgery: Yes (CARDIAC CATH) Ear Surgery: No Endocrine Surgery: No Eye Surgery: No Genitourinary Surgery: Yes (BLADDER UPLIFT) Gynecologic Surgery: Yes (hysteroscopy 2009, D/C) Joint Replacement: Yes (BILATERAL KNEE) Oral Surgery: Yes (tonsils) Pacemaker: No Thoracic Surgery: No Other Surgery: Yes Social History Alcohol Use: Yes (occaisionally) Tobacco Use: No Substance Use: No Allergies-Medications (Allergen,Severity, Reaction): Coded Allergies: Gabapentin (Verified Allergy, Severe, ITCH, 04/17/17) Lyrica (Verified Allergy, Severe, Itching, 04/17/17) Neurontin (Verified Allergy, Severe, Itching, 04/17/17) Penicillin (Verified Allergy, Severe, 04/17/17) Sudafed (Verified Allergy, Severe, 04/17/17) Tylenol #3 (Verified Allergy, Severe, 04/17/17) Reported Meds & Prescriptions Reported Meds & Active Scripts Active Reported Sm Cinnamon (Cinnamon) 500 Mg Cap 500 Mg PO DAILY B12 (Cyanocobalamin) 1,000 Mcg Tab 1,000 Mcg PO DAILY Potassium 99 Mg Tablet 99 Mg PO DAILY Venlafaxine ER 24 HR (Venlafaxine HCl) 75 Mg Cap 75 Mg PO DAILY Venlafaxine ER 24 HR (Venlafaxine HCl) 150 Mg Cap 150 Mg PO HS Diclofenac Topical 1% Gel 1 Applic TOPICAL HS Janumet (Sitagliptin-Metformin) 50-1,000 Mg Tab 1 Tab PO BID Mupirocin Topical (Mupirocin) 2 % Oint 1 Applic TOPICAL BID [place]aca 3-6-9 Complex (Resaca 3 Fatty Acids-Resaca 6 FA) 1 Cap Cap 1 Cap PO DAILY Zinc (Zinc Gluconate) 50 Mg Tab 50 Mg PO DAILY Citalopram (Citalopram Hydrobromide) 40 Mg Tab 40 Mg PO HS Alprazolam 0.5 Mg Tab 0.5 Mg PO Q6H PRN Losartan-Hydrochlorothiazide 100-25 Mg Tab 1 Tab PO DAILY Amlodipine (Amlodipine Besylate) 5 Mg Tab 5 Mg PO DAILY Simvastatin 20 Mg Tab 20 Mg PO DAILY Omeprazole 40 Mg Cap 40 Mg PO HS Atenolol 50 Mg Tab 50 Mg PO BID Review of Systems Except as stated in HPI: all other systems reviewed are Neg Physical Exam Narrative GENERAL: Well-nourished, well-developed patient. SKIN: Warm and dry. HEAD: Normocephalic and atraumatic. EYES: No injection or drainage. ENT: No nasal drainage noted. NECK: Supple, trachea midline. CARDIOVASCULAR: tachycardic rate and regular rhythm RESPIRATORY: Breath sounds equal bilaterally at apices. No accessory muscle use. GASTROINTESTINAL: Abdomen soft, non-tender, nondistended. EXTREMITIES: No edema. NEUROLOGICAL: Awake and alert. moves all extremities. Normal speech. Data Data Last Documented VS Vital Signs Date Time Temp Pulse Resp B/P Pulse Ox O2 Delivery O2 Flow Rate FiO2 04/17/17 17:32 98.0 121 22 107/60 95 Nasal Cannula 04/17/17 16:14 2 04/17/17 00:45 100 Orders Electrocardiogram (04/17/17 16:06) Complete Blood Count With Diff (04/17/17 16:06) Comprehensive Metabolic Panel (04/17/17 16:06) Prothrombin Time / Inr (Pt) (04/17/17 16:06) Act Partial Throm Time (Ptt) (04/17/17 16:06) Lactic Acid Sepsis Protocol (04/17/17 16:06) Magnesium (Mg) (04/17/17 16:06) Phosphorus (Po4) (04/17/17 16:06) Lipase (04/17/17 16:06) Ckmb (Isoenzyme) Profile (04/17/17 16:06) Troponin I (04/17/17 16:06) Urinalysis - C+S If Indicated (04/17/17 16:06) Influenzae A/B Antigen (04/17/17 16:06) Blood Culture (04/17/17 16:06) Chest, Single Ap (04/17/17 16:06) Blood Glucose (04/17/17 16:06) Ecg Monitoring (04/17/17 16:06) Iv Access Insert/Monitor (04/17/17 16:06) Oximetry (04/17/17 16:06) Type And Screen (04/17/17 16:06) Sodium Chlor 0.9% 1000 Ml Inj (Ns 1000 M (04/17/17 16:30) CKMB (04/17/17 16:15) CKMB% (04/17/17 16:15) Vancomycin Inj (Vancomycin Inj) (04/17/17 18:05) Piperacil-Tazo 4.5 Gm Premix (Zosyn 4.5 (04/17/17 18:05) Sodium Chlor 0.9% 1000 Ml Inj (Ns 1000 M (04/17/17 18:15) Ct Thorax/ Chest W Iv Contrast (04/17/17 18:05) Ct Abd/Pel W Iv Contrast(Rout) (04/17/17 18:05) Urinary Catheter Insert/Apply (04/17/17 18:07) Aztreonam Inj (Azactam Inj) (04/17/17 18:10) Metronidazole 500 Mg Inj (Flagyl 500 Mg (04/17/17 18:10) Admit Order (Ed Use Only) (04/17/17 18:27) Labs Laboratory Tests Test 04/17/17 04/17/17 04/17/17 16:15 16:41 18:15 White Blood Count 6.9 TH/MM3 Red Blood Count 3.47 MIL/MM3 Hemoglobin 11.8 GM/DL Hematocrit 35.1 % Mean Corpuscular Volume 101.1 FL Mean Corpuscular Hemoglobin 33.9 PG Mean Corpuscular Hemoglobin 33.5 % Concent Red Cell Distribution Width 20.7 % Platelet Count 148 TH/MM3 Mean Platelet Volume 9.3 FL Neutrophils (%) (Auto) 94.4 % Lymphocytes (%) (Auto) 3.9 % Monocytes (%) (Auto) 0.1 % Eosinophils (%) (Auto) 0.5 % Basophils (%) (Auto) 1.1 % Neutrophils # (Auto) 6.5 TH/MM3 Lymphocytes # (Auto) 0.3 TH/MM3 Monocytes # (Auto) 0.0 TH/MM3 Eosinophils # (Auto) 0.0 TH/MM3 Basophils # (Auto) 0.1 TH/MM3 CBC Comment AUTO DIFF Differential Total Cells 100 Counted Neutrophils % (Manual) 56 % Band Neutrophils % 37 % Lymphocytes % 1 % Neutrophils # (Manual) 6.8 TH/MM3 Metamyelocytes 5 % Myelocytes 1 % Nucleated Red Blood Cells 3 /100 WBC Differential Comment FINAL DIFF MANUAL Toxic Granulation 1+ Platelet Estimate NORMAL Platelet Morphology Comment GIANT Ovalocytes 1+ Prothrombin Time 13.4 SEC Prothromb Time International 1.2 RATIO Ratio Activated Partial 22.7 SEC Thromboplast Time Sodium Level 141 MEQ/L Potassium Level 3.4 MEQ/L Chloride Level 106 MEQ/L Carbon Dioxide Level 21.7 MEQ/L Anion Gap 13 MEQ/L Blood Urea Nitrogen 27 MG/DL Creatinine 1.39 MG/DL Estimat Glomerular Filtration 37 ML/MIN Rate Random Glucose 122 MG/DL Calcium Level 8.6 MG/DL Phosphorus Level 1.7 MG/DL Magnesium Level 0.9 MG/DL Total Bilirubin 1.0 MG/DL Aspartate Amino Transf 74 U/L (AST/SGOT) Alanine Aminotransferase 45 U/L (ALT/SGPT) Alkaline Phosphatase 169 U/L Total Creatine Kinase 271 U/L Creatine Kinase MB 3.7 NG/ML Creatine Kinase MB % 1.4 % Troponin I LESS THAN 0.02 NG/ML Total Protein 6.8 GM/DL Albumin 3.7 GM/DL Lipase 153 U/L Lactic Acid Level 7.2 mmol/L Blood Type O POSITIVE Antibody Screen NEGATIVE Blood Bank Comment Urine Color YELLOW Urine Turbidity HAZY Urine pH 5.5 Urine Specific [place] 1.020 Urine Protein 30 mg/dL Urine Glucose (UA) TRACE mg/dL Urine Ketones NEG mg/dL Urine Occult Blood SMALL Urine Nitrite NEG Urine Bilirubin NEG Urine Urobilinogen LESS THAN 2.0 MG/DL Urine Leukocyte Esterase LARGE Urine RBC 7 /hpf Urine WBC 52 /hpf Urine WBC Clumps MANY Urine Squamous Epithelial <1 /hpf Cells Urine Bacteria FEW /hpf Urine Hyaline Casts 7 /lpf Urine Mucus FEW /lpf Microscopic Urinalysis Comment CATH-CULTURE IND MDM Medical Decision Making Medical Screen Exam Complete: Yes Emergency Medical Condition: Yes Medical Record Reviewed: Yes (pmh confirmed) Interpretation(s) EKG is sinus tachycardia at 135 with wandering baseline which limits interpretation but no consecutive STEMI CBC & BMP Diagram 04/17/17 16:15 Last 24 hours Impressions Abdomen/Pelvis CT 04/17/17 1805 Signed Impressions: Service Date/Time: Monday, April 17, 2017 18:59 - CONCLUSION: 1. 7 mm proximal ureteral stone on the left just below the UPJ with resulting hydronephrosis. No perinephric fluid collections. 2. Umbilical hernia containing fat. There is mild stranding of the fat. Clinical evaluation for reducibility suggested. 3. Colonic diverticulosis. Luis Granados Jr., MD Chest X-Ray 04/17/17 1606 Signed Impressions: Service Date/Time: Monday, April 17, 2017 16:24 - CONCLUSION: 1. Atelectasis at both lung bases. No acute cardiopulmonary abnormality is identified. 2. Large hiatal hernia. Osvaldo Santana MD Differential Diagnosis anemia, uri, arf, electrolyte abnormality, pna.... Narrative Course will check labs, ua, cxr and dose with ivf and reeval ed workup shows bandemia, lactic acidosis, urinary tract infection. CT scans added on to rule out concurrent process given significant bandemia and acidosis. Patient stable in nasal cannula. Continue IV fluid hydration, antibiotics were ordered given penicillin allergy, we'll admit to the ICU to help expedite care CT shows large proximal stone. Discussed with urology stat and he will come in for stent placement. At my time of departure patient is stable and nasal cannula and blood pressure has improved with IV fluid hydration. ICU attending at bedside and updated. Critical Care Narrative Aggregate critical care time was 45 minutes. Time to perform other separately billable procedures was not included in the critical care time. My time did not include minutes spent treating any other patients simultaneously or on activities that did not directly contribute to the patient's treatment. The services I provided to this patient were to treat and/or prevent clinically significant deterioration that could result in: septic shock, I provided critical care services requiring my management, as noted below: Chart data review, documentation time, medication orders and management, vital sign assessments/reviewing monitor data, ordering and reviewing lab tests, ordering and interpreting/reviewing x-rays and diagnostic studies, care of the patient and discussion of the patient with the admitting physicians. Sepsis Criteria SIRS Criteria (2 or more): Heart rate over 90, WBC > 06790, < 4000 or > 10% bands Sepsis Criteria (SIRS+source): Infect source susp/known Severe Sepsis (+one): Lactate >2 Septic Shock Criteria: Lactic acid >=4 Criteria Outcome: Meets septic shock criteria Physician Communication Physician Communication dr anguiano agrees to admit dr gill will see stat given septic stone dr saenz given brief report on patient while awaiting ICU bed Diagnosis Primary Impression: Septic shock Additional Impressions: Pyelonephritis Nephrolithiasis Lactic acidosis Admitting Information Admitting Physician Requests: Admit Natalie Goldberg MD April 17, 2017 16:40
[2017-04-17 17:04] LABS: AUTOMATED NEUTROPHIL # 6.5 TH/MM3 (1.8-7.7); BASOPHIL # 0.1 TH/MM3 (0-0.2); BASOPHIL % 1.1 % (0.0-2.0); EOSINOPHIL % 0.5 % (0.0-4.0); HEMATOCRIT 35.1 % (35.0-46.0); LYMPH % 3.9 % (9.0-44.0); LYMPHOCYTE # 0.3 TH/MM3 (1.0-4.8); MEAN CELL VOLUME 101.1 FL (80.0-100.0); MEAN CORPUSCULAR HEMOGLOBIN 33.9 PG (27.0-34.0); MEAN CORPUSCULAR HGB CONC 33.5 % (32.0-36.0); MONO % 0.1 % (0.0-8.0); NEUT % 94.4 % (16.0-70.0); PLATELET COUNT 148 TH/MM3 (150-450); RED BLOOD COUNT 3.47 MIL/MM3 (4.00-5.30); RED CELL DISTRIBUTION WIDTH 20.7 % (11.6-17.2); WHITE BLOOD COUNT 6.9 TH/MM3 (4.0-11.0)
[2017-04-17 17:08] LABS: APTT (PATIENT) 22.7 SEC (24.3-30.1); INTERNATIONAL NORMALIZED RATIO 1.2 RATIO; PROTHROMBIN TIME - PATIENT 13.4 SEC (9.8-11.6)
[2017-04-17 17:11] LABS: HEMO FLAGS AUTO DIFF
[2017-04-17] MEDS ORDERED: DICL1GEL7 TOPICAL (17:20)
[2017-04-17] MEDS ORDERED: POTA99TA4 PO (17:20)
[2017-04-17] MEDS ORDERED: VENL75CA44 PO (17:20)
[2017-04-17] MEDS ORDERED: CYAN1TAB24 PO (17:20)
[2017-04-17] MEDS ORDERED: VENL150C39 PO (17:20)
[2017-04-17] MEDS ORDERED: CINN500C13 PO (17:21)
[2017-04-17 17:22] LABS: ALT (GPT) 45 U/L (10-53)
[2017-04-17 17:38] LABS: ALKALINE PHOSPHATASE 169 U/L (45-117); ANION GAP 13 MEQ/L (5-15); AST (GOT) 74 U/L (15-37); BICARBONATE 21.7 MEQ/L (21.0-32.0); BLOOD UREA NITROGEN 27 MG/DL (7-18); CHLORIDE 106 MEQ/L (98-107); CREATINE KINASE 271 U/L (26-192); GLOMERULAR FILTRATION RATE 37 ML/MIN (>89); MAGNESIUM 0.9 MG/DL (1.5-2.5); POTASSIUM 3.4 MEQ/L (3.5-5.1); SODIUM (NA) 141 MEQ/L (136-145)
[2017-04-17 17:42] LABS: BANDS 37 % (0-6); CORRECTED NUCLEATED RBC 3 /100 WBC (0-0); METAMYELOCYTES 5 % (0-1); MYELOCYTES 1 % (0-0); NEUTROPHIL # MANUAL DIFF 6.8 TH/MM3 (1.8-7.7); POLYS (SEG NEUTROPHILS) 56 % (16-70); WBC DIFF SAMPLE 100
[2017-04-17 17:43] LABS: OVALOCYTES 1+ (NORMAL); PLATELET ESTIMATE SMEAR NORMAL (NORMAL); PLATELET MORPHOLOGY GIANT (NORMAL); SCAN/DIFF FINAL DIFF MANUAL; TOXIC GRANULATION 1+ (NORMAL)
[2017-04-17 17:50] LABS: CKMB 3.7 NG/ML (0.5-3.6)
[2017-04-17] MEDS ORDERED: PIPERACIL-TAZO 4.5 GM PREMIX 100 ML IV STA (18:05)
[2017-04-17] MEDS ORDERED: VANCOMYCIN INJ 1,000 MG in SODIUM CHLOR 0.9% 250 ML INJ 250 ML IV STA (18:05)
[2017-04-17] MEDS ORDERED: AZTREONAM INJ 2,000 MG in SODIUM CHLORIDE 0.9% INJ 100 ML IV STA (18:10)
[2017-04-17] MEDS ORDERED: metroNIDAZOLE 500 MG INJ 100 ML IV STA (18:10)
[2017-04-17 19:02] LABS: BACTERIA, URINE FEW /hpf; BLOOD, URINE SMALL (NEG); GLUCOSE,URINE TRACE mg/dL (NEG); HYALINE CAST, URINE 7 /lpf (RARE); KETONE, URINE NEG (NEG); MUCUS URINE FEW /lpf (OCC); NITRITE,URINE NEG (NEG); PH, URINE 5.5 (5.0-8.5); SQUAMOUS EPITHELIAL CELL URINE <1 /hpf (0-5); URINE COLOR YELLOW (YELLW/STRAW)
[2017-04-17 19:03] LABS: COMMENT (UR) CATH-CULTURE IND; CULTURE IF INDICATED CATH CULTURE IND
[2017-04-17] MEDS ORDERED: IODIXANOL 320 MG/ML 10 ML VIAL (for Rad CT) IV ONE (19:09)
[2017-04-17 19:12] LABS: LACTIC ACID GHOST NOT REPORTABLE
--- NOTE | 2017-04-17 19:23 | RADRPT ---
EXAM DATE/TIME: 04/17/2017 18:59 [facility] COMPARISON: No previous studies available for comparison. INDICATIONS : Abdominal pain. IV CONTRAST: 49 cc Visipaque (iodixanol) IV ; Cumulative dose for multiple exams. ORAL CONTRAST: No oral contrast ingested. RADIATION DOSE: 23.32 CTDIvol (mGy) ; Combined studies - Thorax/Abdomen/Pelvis MEDICAL HISTORY : Hypertension. Gastroesophageal reflux disease. Renal calculi.Diabetes. SURGICAL HISTORY : None. ENCOUNTER: Initial ACUITY: 1 day PAIN SCALE: 5/10 LOCATION: All quadrants. TECHNIQUE: Volumetric scanning of the abdomen and pelvis was performed. Using automated exposure control and ad justment of the mA and/or kV according to patient size, radiation dose was kept as low as reasonably achievable to obtain optimal diagnostic quality images. FINDINGS: LOWER LUNGS: See the CT of the thorax dictated separately. LIVER: Homogeneous density without lesion. There is no dilation of the biliary tree. No calcified gallston es. SPLEEN: Normal size without lesion. PANCREAS: Within normal limits. KIDNEYS: There is a 7 mm left proximal ureteral stone. This projects approximately 1-2 cm below the UPJ. There is resulting hydronephrosis. No perinephric stranding or fluid collections. No other stones observed . Right kidney is unremarkable. ADRENAL GLANDS: Within normal limits. VASCULAR: There is no aortic aneurysm. BOWEL/MESENTERY: The stomach, small bowel, and colon demonstrate no acute abnormality. There is no free intraperitone al air or fluid. Scattered colonic diverticuli. No acute inflammation. ABDOMINAL WALL: An umbilical hernia containing omental fat. There is mild stranding of the fat. No fluid collections. RETROPERITONEUM: There is no lymphadenopathy. BLADDER: No wall thickening or mass. REPRODUCTIVE: Within normal limits. INGUINAL: There is no lymphadenopathy or hernia. MUSCULOSKELETAL: A degenerative and scoliotic lumbar spine. CONCLUSION: 1. 7 mm proximal ureteral stone on the left just below the UPJ with resulting hydronephrosis. No partha nephric fluid collections. 2. Umbilical hernia containing fat. There is mild stranding of the fat. Clinical evaluation for reduc ibility suggested. 3. Colonic diverticulosis. Luis Granados Jr., MD on April 17, 2017 at 19:16 Board Certified Radiologist. This report was verified electronically.
--- NOTE | 2017-04-17 19:25 | RADRPT ---
EXAM DATE/TIME: 04/17/2017 18:59 [facility] COMPARISON: No previous studies available for comparison. INDICATIONS : Chest pain. Tachypnea. IV CONTRAST: 49 cc Visipaque (iodixanol) IV RADIATION DOSE: 23.32 CTDIvol (mGy) ; Combined studies - Thorax/Abdomen/Pelvis MEDICAL HISTORY : Hypertension. Diabetes. SURGICAL HISTORY : None. ENCOUNTER: Initial ACUITY: 1 day PAIN SCALE: 5/10 LOCATION: Bilateral chest TECHNIQUE: Volumetric scanning of the chest was performed. Using automated exposure control and adjustment of t he mA and/or kV according to patient size, radiation dose was kept as low as reasonably achievable to obtain optimal diagnostic quality images. FINDINGS: Exam degraded by breathing motion artifact. LUNGS: Bibasilar atelectasis. No discrete infiltrate PLEURA: There is no pleural thickening or pleural effusion. MEDIASTINUM: A large hiatal hernia containing the majority of the stomach. The heart is mildly enlarged. No perica rdial effusion. Aorta and pulmonary arteries are normal in caliber. No adenopathy or mass. AXILLAE: Within normal limits. No lymphadenopathy. SKELETAL: Within normal limits for patient age. MISCELLANEOUS: See the CT of the abdomen and pelvis reported separately. CONCLUSION: 1. No acute intrathoracic process. 2. Large hiatal hernia. 3. Cardiomegaly. Luis Granados Jr., MD on April 17, 2017 at 19:21 Board Certified Radiologist. This report was verified electronically.
[2017-04-17] MEDS ORDERED: ONDANSETRON HCL 4 MG/2 ML VIAL ONE (20:14)
--- NOTE | 2017-04-17 20:21 | HHI.HP ---
HPI Service Critical Care Medicine Primary Care Physician King Jin MD Admission Diagnosis sepsis Diagnosis: Travel History International Travel<30 Days: No Contact w/Intl Traveler <30 Da: No Traveled to Known Affected Are: No History of Present Illness 76-year-old female presents after while she was at [facility] getting her nails done she developed vomiting and shortness of breath. She states she had 4 episodes of vomiting. She was tachycardic in route in the 130s. Her blood pressures were stable till when she got here her last blood pressure was a systolic of 70. She was given 4 mg of Zofran. Patient denies any significant pain, fever or other complaints. She told me that she thinks she overdid herself today with too much physical activities. In the emergency department she became extremely short of breath and hypoxemic and was intubated by ER attending for airway protection Review of Systems ROS Unable to obtain patient is sedated and intubated Past Family Social History Allergies: Coded Allergies: Gabapentin (Verified Allergy, Severe, ITCH, 04/17/17) Lyrica (Verified Allergy, Severe, Itching, 04/17/17) Neurontin (Verified Allergy, Severe, Itching, 04/17/17) Penicillin (Verified Allergy, Severe, 04/17/17) Sudafed (Verified Allergy, Severe, 04/17/17) Tylenol #3 (Verified Allergy, Severe, 04/17/17) Past Medical History Hypertension Depression Anxiety Dyslipidemia GERD Past Surgical History D and C in 2002 Right knee replacement 2000 Left knee replacements 2002 Breast biopsy 2007 Cataract surgery 2010 Bladder lift in 1982 Reported Medications Last [address] 04/17/17 180 Signed Impressions: Service Date/Time: Monday, April 17, 2017 18:59 - CONCLUSION: 1. No acute intrathoracic process. 2. Large hiatal hernia. 3. Cardiomegaly. Luis Granados Jr., MD Abdomen/Pelvis CT 04/17/17 180 Signed Impressions: Service Date/Time: Monday, April 17, 2017 18:59 - CONCLUSION: 1. 7 mm proximal ureteral stone on the left just below the UPJ with resulting hydronephrosis. No perinephric fluid collections. 2. Umbilical hernia containing fat. There is mild stranding of the fat. Clinical evaluation for reducibility suggested. 3. Colonic diverticulosis. Luis Granados Jr., MD Chest X-Ray 04/17/17 1606 Signed Impressions: Service Date/Time: Monday, April 17, 2017 16:24 - CONCLUSION: 1. Atelectasis at both lung bases. No acute cardiopulmonary abnormality is identified. 2. Large hiatal hernia. Osvaldo Santana MD Physical Exam Vital Signs Vital Signs Date Time Temp Pulse Resp B/P Pulse Ox O2 Delivery O2 Flow Rate FiO2 04/17/17 19:40 109 20 96/58 93 04/17/17 18:41 100.2 118 22 102/69 96 Nasal Cannula 3 04/17/17 17:32 98.0 121 22 107/60 95 Nasal Cannula 04/17/17 16:14 24 97 Nasal Cannula 2 04/17/17 16:10 122 22 94 Nasal Cannula 3 04/17/17 16:04 98.2 137 22 117/58 95 Laboratory Laboratory Tests Test 04/17/17 04/17/17 04/17/17 04/17/17 16:15 16:41 18:15 18:55 White Blood Count 6.9 Red Blood Count 3.47 Hemoglobin 11.8 Hematocrit 35.1 Mean Corpuscular Volume 101.1 Mean Corpuscular Hemoglobin 33.9 Mean Corpuscular Hemoglobin 33.5 Concent Red Cell Distribution Width 20.7 Platelet Count 148 Mean Platelet Volume 9.3 Neutrophils (%) (Auto) 94.4 Lymphocytes (%) (Auto) 3.9 Monocytes (%) (Auto) 0.1 Eosinophils (%) (Auto) 0.5 Basophils (%) (Auto) 1.1 Neutrophils # (Auto) 6.5 Lymphocytes # (Auto) 0.3 Monocytes # (Auto) 0.0 Eosinophils # (Auto) 0.0 Basophils # (Auto) 0.1 CBC Comment AUTO DIFF Differential Total Cells 100 Counted Neutrophils % (Manual) 56 Band Neutrophils % 37 Lymphocytes % 1 Neutrophils # (Manual) 6.8 Metamyelocytes 5 Myelocytes 1 Nucleated Red Blood Cells 3 Differential Comment FINAL DIFF MANUAL Toxic Granulation 1+ Platelet Estimate NORMAL Platelet Morphology Comment GIANT Ovalocytes 1+ Prothrombin Time 13.4 Prothromb Time International 1.2 Ratio Activated Partial 22.7 Thromboplast Time Sodium Level 141 Potassium Level 3.4 Chloride Level 106 Carbon Dioxide Level 21.7 Anion Gap 13 Blood Urea Nitrogen 27 Creatinine 1.39 Estimat Glomerular Filtration 37 Rate Random Glucose 122 Calcium Level 8.6 Phosphorus Level 1.7 Magnesium Level 0.9 Total Bilirubin 1.0 Aspartate Amino Transf 74 (AST/SGOT) Alanine Aminotransferase 45 (ALT/SGPT) Alkaline Phosphatase 169 Total Creatine Kinase 271 Creatine Kinase MB 3.7 Creatine Kinase MB % 1.4 Troponin I LESS THAN 0.02 Total Protein 6.8 Albumin 3.7 Lipase 153 Lactic Acid Level 7.2 9.9 Blood Type O POSITIVE Antibody Screen NEGATIVE Blood Bank Comment Urine Color YELLOW Urine Turbidity HAZY Urine pH 5.5 Urine Specific [place] 1.020 Urine Protein 30 Urine Glucose (UA) TRACE Urine Ketones NEG Urine Occult Blood SMALL Urine Nitrite NEG Urine Bilirubin NEG Urine Urobilinogen LESS THAN 2.0 Urine Leukocyte Esterase LARGE Urine RBC 7 Urine WBC 52 Urine WBC Clumps MANY Urine Squamous Epithelial <1 Cells Urine Bacteria FEW Urine Hyaline Casts 7 Urine Mucus FEW Microscopic Urinalysis Comment CATH-CULTURE IND Date/Time Procedure Status Source Growth 04/17/17 18:15 Urine Culture Received Urine Catheterized Urine Pending 04/17/17 17:00 Aerobic Blood Culture Received Blood Peripheral Pending 04/17/17 17:00 Anaerobic Blood Culture Received Blood Peripheral Pending 04/17/17 16:40 Influenza Types A,B Antigen (ÁLVARO) - Final Complete Nasal Aspirate NEGATIVE FOR FLU A AND B ANTIGEN.... Result Diagram: 04/17/17 1615 04/17/17 1615 Imaging Last [address] 04/17/171804 Signed Impressions: Service Date/Time: Monday, April 17, 2017 18:59 - CONCLUSION: 1. No acute intrathoracic process. 2. Large hiatal hernia. 3. Cardiomegaly. Luis Granados Jr., MD Abdomen/Pelvis CT 04/17/171804 Signed Impressions: Service Date/Time: Monday, April 17, 2017 18:59 - CONCLUSION: 1. 7 mm proximal ureteral stone on the left just below the UPJ with resulting hydronephrosis. No perinephric fluid collections. 2. Umbilical hernia containing fat. There is mild stranding of the fat. Clinical evaluation for reducibility suggested. 3. Colonic diverticulosis. Luis Granados Jr., MD Chest X-Ray 04/17/17 1606 Signed Impressions: Service Date/Time: Monday, April 17, 2017 16:24 - CONCLUSION: 1. Atelectasis at both lung bases. No acute cardiopulmonary abnormality is identified. 2. Large hiatal hernia. Osvaldo Santana MD Assessment and Plan Assessment and Plan Respiratory failure - Intubated for airway protection - Continue mechanical ventilation - OR tomorrow a.m. - Wean post procedure if hemodynamically stable Severe Sepsis - Broad-spectrum antibiotics - Aggressive IV fluid hydration - Infectious disease consult - Most likely urosepsis based on a CAT scan results - Pyelonephritis - treated with vancomycin and Flagyl and aztreonam - De-escalate antibiotics per sensitivity Obstructive pyelonephritis - Due to urethral stone - urology consult stat - Patient was seen negative examined by a urologist - Planned intervention for tomorrow morning Hypertension - We'll hold all antihypertensive meds due to worrisome of hypotension with sepsis - Resume when hemodynamically stable Diabetes mellitus type 2 - Hold by mouth meds while in the ICU - Insulin sliding scale DVT GI prophylaxis - Teds SCDs subcutaneous heparin - Pepcid Critical Care: The total critical care time was 35 minutes. Time to perform other separately billable procedures was not included in the critical care time. Terry Muir MD April 17, 2017 20:21
[2017-04-17] MEDS ORDERED: SUCCINYLCHOLINE CHLORIDE 200 MG/10 ML VIAL ONE (20:27)
[2017-04-17] MEDS ORDERED: SODIUM CHLOR 0.9% 1000 ML INJ 100 ML IV ONE (20:37)
[2017-04-17] MEDS ORDERED: PROPOFOL 1000 MG/100 ML INJ 100 ML ONE (20:40)
[2017-04-17] MEDS ORDERED: HEPARIN SODIUM - SQ 10,000 UNITS/ML VIAL SQ SCH (20:45)
[2017-04-17] MEDS ORDERED: SUCCINYLCHOLINE CHLORIDE 200 MG/10 ML VIAL IV PUSH ONE (20:45)
[2017-04-17] MEDS ORDERED: MISCELLANEOUS NURSING INFORMATION XX SCH (20:45)
[2017-04-17] MEDS ORDERED: DEXTROSE 50% IN WATER 50 ML VIAL(D50) IV PRN (20:45)
[2017-04-17] MEDS ORDERED: TERBUTALINE INJ 1 MG/ML AMP SQ PRN (20:45)
[2017-04-17] MEDS ORDERED: HYDROCORTISONE SOD SUCCINATE 100 MG VIAL IV SCH (20:45)
[2017-04-17] MEDS ORDERED: ETOMIDATE 20 MG/10 ML VIAL IV PUSH ONE (20:45)
[2017-04-17] MEDS ORDERED: SODIUM BICARBONATE 8.4% INJ 150 MEQ in DEXTROSE 5% IN WATE 1000ML INJ 1,000 ML IV SCH ×2 (20:45)
[2017-04-17] MEDS ORDERED: PROPOFOL 1000 MG/100 ML INJ 100 ML IV SCH ×2 (20:45)
[2017-04-17] MEDS ORDERED: RESP: ALBUTEROL 2.5 MG/IPRATROPIUM 0.5 MG NEB (PRN) INH (20:45)
[2017-04-17] MEDS ORDERED: GLUCAGON 1 MG/ML VIAL OTHER PRN (20:45)
[2017-04-17] MEDS ORDERED: VANCOMYCIN INJ 1,000 MG in SODIUM CHLOR 0.9% 250 ML INJ 250 ML IV SCH (20:45)
[2017-04-17] MEDS ORDERED: CHLORHEXIDINE GLUCONATE 2 % 1 PACK (2 CLOTHS) TOP PRN (20:45)
[2017-04-17] MEDS ORDERED: SODIUM CHLORIDE 0.9% FLUSH 10 ML FLUSH IV FLUSH PRN (20:45)
[2017-04-17] MEDS ORDERED: Vancomycin Consult Pharmacy 1 EA OTHER SCH (20:45)
[2017-04-17] MEDS ORDERED: INSULIN ASPART SUPPLEMENTAL SCALE SQ SCH (21:00)
[2017-04-17] MEDS ORDERED: FAMOTIDINE 20 MG TAB PO SCH (21:00)
[2017-04-17] MEDS ORDERED: SODIUM CHLORIDE 0.9% FLUSH 10 ML FLUSH IV FLUSH SCH (21:00)
--- NOTE | 2017-04-17 21:04 | MB ---
cc: ADALGISA CABALLERO DATE OF CONSULTATION 04/17/17 HISTORY OF PRESENT ILLNESS This is a 76-year-old female who presented with sepsis. She is presently being intubated in the emergency room. This history and physical will be taken from the chart. She apparently developed some shortness of breath earlier today and also had episodes of vomiting. She presented to the emergency room with a heart rate in the 130s. She had a CT scan that showed a 7 mm left mid ureteral stone with minimal hydronephrosis without any evidence of perinephric stranding. Her urinalysis showed clumps of white cells with approximately 54 WBCs present. PAST MEDICAL HISTORY 1. Hypertension, 2. Depression, anxiety, 3. Dyslipidemia 4. Gastroesophageal reflux disease PAST SURGICAL HISTORY 1. Bladder surgery in 1982 2. Cataract surgery, 3. Breast biopsy 4. Left knee replacement 5. Right knee replacement. 6. D&C ALLERGIES To medications are multiple including LYRICA GABAPENTIN NEURONTIN PENICILLIN SUDAFED TYLENOL FAMILY HISTORY AND SOCIAL HISTORY, REVIEW OF SYSTEMS Unable to obtain. PHYSICAL EXAMINATION VITAL SIGNS: Presently temperature is 100.2, heart rates 109, blood pressure of 96/58, pulse ox is 93% on nasal cannula 3 liters. GENERAL: She is a 76-year-old female. HEENT:Normocephalic, atraumatic. NECK: Supple and midline. HEART: Rate is sinus tach LUNGS: Breath sounds bilaterally. ABDOMEN: Soft, nontender, nondistended. EXTREMITIES: No cyanosis, clubbing or edema. LABORATORY DATA White count was 6.9, hemoglobin 11.8, hematocrit 35.1, platelet count 148. Sodium 141, potassium 3.4, chloride 106, CO2 21.7, BUN of 27 creatinine 1.3, glucose of 122, alkaline phosphatase 169, creatinine kinase is 271. CK-MB is 3.7 and 1.4%. Coag - PT is 13.4, INR is 1.2, PTT is 22.7. Urinalysis shows 52 white cells, seven red cells, many clumps large leuko esterase. IMAGING STUDIES A 7 mm proximal left ureteral stone. Minimal hydronephrosis. No perinephric stranding is present. Chest CT showed no acute intrathoracic process, large hiatal hernia is noted, cardiomegaly. ASSESSMENT This is a 76-year-old female admitted with sepsis with a 7 mm proximal left ureteral stone. The patient is currently intubated and sedated on a vent. We will plan for cystoscopy and left double-J stent in the a.m. once she is more stabilized. Continue with IV fluids and IV antibiotics. Pressors if necessary. Place Purcell catheter. Thank you for the consult and allowing me to participate in the care of this patient. Adalgisa ZAMUDIO /8:40 PM /8:52 PM TAMIKO
--- NOTE | 2017-04-17 21:14 | PD ---
Physical Exam Date Seen by Provider: April 17, 2017 Time Seen by Provider: 21:09 Narrative The patient is a 76-year-old female was initially evaluated by the previous physician, Dr. Goldberg. Please refer to the initial history, physical, diagnostic evaluation, and treatment modality plan. Data Data Last Documented VS Vital Signs Date Time Temp Pulse Resp B/P Pulse Ox O2 Delivery O2 Flow Rate FiO2 04/17/17 17:32 98.0 121 22 107/60 95 Nasal Cannula 04/17/17 16:14 2 04/17/17 00:45 100 Orders Electrocardiogram (04/17/17 16:06) Complete Blood Count With Diff (04/17/17 16:06) Comprehensive Metabolic Panel (04/17/17 16:06) Prothrombin Time / Inr (Pt) (04/17/17 16:06) Act Partial Throm Time (Ptt) (04/17/17 16:06) Lactic Acid Sepsis Protocol (04/17/17 16:06) Magnesium (Mg) (04/17/17 16:06) Phosphorus (Po4) (04/17/17 16:06) Lipase (04/17/17 16:06) Ckmb (Isoenzyme) Profile (04/17/17 16:06) Troponin I (04/17/17 16:06) Urinalysis - C+S If Indicated (04/17/17 16:06) Influenzae A/B Antigen (04/17/17 16:06) Blood Culture (04/17/17 16:06) Chest, Single Ap (04/17/17 16:06) Blood Glucose (04/17/17 16:06) Ecg Monitoring (04/17/17 16:06) Iv Access Insert/Monitor (04/17/17 16:06) Oximetry (04/17/17 16:06) Type And Screen (04/17/17 16:06) Sodium Chlor 0.9% 1000 Ml Inj (Ns 1000 M (04/17/17 16:30) CKMB (04/17/17 16:15) CKMB% (04/17/17 16:15) Vancomycin Inj (Vancomycin Inj) (04/17/17 18:05) Piperacil-Tazo 4.5 Gm Premix (Zosyn 4.5 (04/17/17 18:05) Sodium Chlor 0.9% 1000 Ml Inj (Ns 1000 M (04/17/17 18:15) Ct Thorax/ Chest W Iv Contrast (04/17/17 18:05) Ct Abd/Pel W Iv Contrast(Rout) (04/17/17 18:05) Urinary Catheter Insert/Apply (04/17/17 18:07) Aztreonam Inj (Azactam Inj) (04/17/17 18:10) Metronidazole 500 Mg Inj (Flagyl 500 Mg (04/17/17 18:10) Admit Order (Ed Use Only) (04/17/17 18:27) Labs Laboratory Tests Test 04/17/17 04/17/17 04/17/17 16:15 16:41 18:15 White Blood Count 6.9 TH/MM3 Red Blood Count 3.47 MIL/MM3 Hemoglobin 11.8 GM/DL Hematocrit 35.1 % Mean Corpuscular Volume 101.1 FL Mean Corpuscular Hemoglobin 33.9 PG Mean Corpuscular Hemoglobin 33.5 % Concent Red Cell Distribution Width 20.7 % Platelet Count 148 TH/MM3 Mean Platelet Volume 9.3 FL Neutrophils (%) (Auto) 94.4 % Lymphocytes (%) (Auto) 3.9 % Monocytes (%) (Auto) 0.1 % Eosinophils (%) (Auto) 0.5 % Basophils (%) (Auto) 1.1 % Neutrophils # (Auto) 6.5 TH/MM3 Lymphocytes # (Auto) 0.3 TH/MM3 Monocytes # (Auto) 0.0 TH/MM3 Eosinophils # (Auto) 0.0 TH/MM3 Basophils # (Auto) 0.1 TH/MM3 CBC Comment AUTO DIFF Differential Total Cells 100 Counted Neutrophils % (Manual) 56 % Band Neutrophils % 37 % Lymphocytes % 1 % Neutrophils # (Manual) 6.8 TH/MM3 Metamyelocytes 5 % Myelocytes 1 % Nucleated Red Blood Cells 3 /100 WBC Differential Comment FINAL DIFF MANUAL Toxic Granulation 1+ Platelet Estimate NORMAL Platelet Morphology Comment GIANT Ovalocytes 1+ Prothrombin Time 13.4 SEC Prothromb Time International 1.2 RATIO Ratio Activated Partial 22.7 SEC Thromboplast Time Sodium Level 141 MEQ/L Potassium Level 3.4 MEQ/L Chloride Level 106 MEQ/L Carbon Dioxide Level 21.7 MEQ/L Anion Gap 13 MEQ/L Blood Urea Nitrogen 27 MG/DL Creatinine 1.39 MG/DL Estimat Glomerular Filtration 37 ML/MIN Rate Random Glucose 122 MG/DL Calcium Level 8.6 MG/DL Phosphorus Level 1.7 MG/DL Magnesium Level 0.9 MG/DL Total Bilirubin 1.0 MG/DL Aspartate Amino Transf 74 U/L (AST/SGOT) Alanine Aminotransferase 45 U/L (ALT/SGPT) Alkaline Phosphatase 169 U/L Total Creatine Kinase 271 U/L Creatine Kinase MB 3.7 NG/ML Creatine Kinase MB % 1.4 % Troponin I LESS THAN 0.02 NG/ML Total Protein 6.8 GM/DL Albumin 3.7 GM/DL Lipase 153 U/L Lactic Acid Level 7.2 mmol/L Blood Type O POSITIVE Antibody Screen NEGATIVE Blood Bank Comment Urine Color YELLOW Urine Turbidity HAZY Urine pH 5.5 Urine Specific Romney 1.020 Urine Protein 30 mg/dL Urine Glucose (UA) TRACE mg/dL Urine Ketones NEG mg/dL Urine Occult Blood SMALL Urine Nitrite NEG Urine Bilirubin NEG Urine Urobilinogen LESS THAN 2.0 MG/DL Urine Leukocyte Esterase LARGE Urine RBC 7 /hpf Urine WBC 52 /hpf Urine WBC Clumps MANY Urine Squamous Epithelial <1 /hpf Cells Urine Bacteria FEW /hpf Urine Hyaline Casts 7 /lpf Urine Mucus FEW /lpf Microscopic Urinalysis Comment CATH-CULTURE IND MDM Medical Record Reviewed: Yes Supervised Visit with RIGOBERTO: No Interpretation(s) Last Impressions Chest CT 04/17/171804 Signed Impressions: Service Date/Time: Monday, April 17, 2017 18:59 - CONCLUSION: 1. No acute intrathoracic process. 2. Large hiatal hernia. 3. Cardiomegaly. Luis Granados Jr., MD Abdomen/Pelvis CT 04/17/171804 Signed Impressions: Service Date/Time: Monday, April 17, 2017 18:59 - CONCLUSION: 1. 7 mm proximal ureteral stone on the left just below the UPJ with resulting hydronephrosis. No perinephric fluid collections. 2. Umbilical hernia containing fat. There is mild stranding of the fat. Clinical evaluation for reducibility suggested. 3. Colonic diverticulosis. Luis Granados Jr., MD Chest X-Ray 04/17/17 1606 Signed Impressions: Service Date/Time: Monday, April 17, 2017 16:24 - CONCLUSION: 1. Atelectasis at both lung bases. No acute cardiopulmonary abnormality is identified. 2. Large hiatal hernia. Osvaldo Sanatna MD Laboratory Tests Test 04/17/17 04/17/17 04/17/17 16:15 16:41 18:15 White Blood Count 6.9 TH/MM3 Red Blood Count 3.47 MIL/MM3 Hemoglobin 11.8 GM/DL Hematocrit 35.1 % Mean Corpuscular Volume 101.1 FL Mean Corpuscular Hemoglobin 33.9 PG Mean Corpuscular Hemoglobin 33.5 % Concent Red Cell Distribution Width 20.7 % Platelet Count 148 TH/MM3 Mean Platelet Volume 9.3 FL Neutrophils (%) (Auto) 94.4 % Lymphocytes (%) (Auto) 3.9 % Monocytes (%) (Auto) 0.1 % Eosinophils (%) (Auto) 0.5 % Basophils (%) (Auto) 1.1 % Neutrophils # (Auto) 6.5 TH/MM3 Lymphocytes # (Auto) 0.3 TH/MM3 Monocytes # (Auto) 0.0 TH/MM3 Eosinophils # (Auto) 0.0 TH/MM3 Basophils # (Auto) 0.1 TH/MM3 CBC Comment AUTO DIFF Differential Total Cells 100 Counted Neutrophils % (Manual) 56 % Band Neutrophils % 37 % Lymphocytes % 1 % Neutrophils # (Manual) 6.8 TH/MM3 Metamyelocytes 5 % Myelocytes 1 % Nucleated Red Blood Cells 3 /100 WBC Differential Comment FINAL DIFF MANUAL Toxic Granulation 1+ Platelet Estimate NORMAL Platelet Morphology Comment GIANT Ovalocytes 1+ Prothrombin Time 13.4 SEC Prothromb Time International 1.2 RATIO Ratio Activated Partial 22.7 SEC Thromboplast Time Sodium Level 141 MEQ/L Potassium Level 3.4 MEQ/L Chloride Level 106 MEQ/L Carbon Dioxide Level 21.7 MEQ/L Anion Gap 13 MEQ/L Blood Urea Nitrogen 27 MG/DL Creatinine 1.39 MG/DL Estimat Glomerular Filtration 37 ML/MIN Rate Random Glucose 122 MG/DL Calcium Level 8.6 MG/DL Phosphorus Level 1.7 MG/DL Magnesium Level 0.9 MG/DL Total Bilirubin 1.0 MG/DL Aspartate Amino Transf 74 U/L (AST/SGOT) Alanine Aminotransferase 45 U/L (ALT/SGPT) Alkaline Phosphatase 169 U/L Total Creatine Kinase 271 U/L Creatine Kinase MB 3.7 NG/ML Creatine Kinase MB % 1.4 % Troponin I LESS THAN 0.02 NG/ML Total Protein 6.8 GM/DL Albumin 3.7 GM/DL Lipase 153 U/L Lactic Acid Level 7.2 mmol/L Blood Type O POSITIVE Antibody Screen NEGATIVE Blood Bank Comment Urine Color YELLOW Urine Turbidity HAZY Urine pH 5.5 Urine Specific Romney 1.020 Urine Protein 30 mg/dL Urine Glucose (UA) TRACE mg/dL Urine Ketones NEG mg/dL Urine Occult Blood SMALL Urine Nitrite NEG Urine Bilirubin NEG Urine Urobilinogen LESS THAN 2.0 MG/DL Urine Leukocyte Esterase LARGE Urine RBC 7 /hpf Urine WBC 52 /hpf Urine WBC Clumps MANY Urine Squamous Epithelial <1 /hpf Cells Urine Bacteria FEW /hpf Urine Hyaline Casts 7 /lpf Urine Mucus FEW /lpf Microscopic Urinalysis Comment CATH-CULTURE IND Differential Diagnosis Differential diagnosis includes sepsis, pyelonephritis, nephrolithiasis, pneumonia, lactic acidosis, septic shock, severe sepsis. Narrative Course The patient was initially evaluated by the previous physician, Dr. Goldberg. Please refer to the initial history, physical, diagnostic evaluation, treatment modality plan. The patient was admitted to the [facility] and was scheduled to go the operating room, however, prior to the OR the patient developed tachypnea, dropped her O2 saturations, became tachycardic and unstable. Therefore, the patient had to be intubated. I discussed the patient with the admitting tile layer, Dr. Muir who responded immediately. I intubated the patient at bedside using a glide scope and then placed a right internal jugular under ultrasound guidance. Post intubation and central line placement chest x-ray was obtained. The patient has been admitted to the intensive care unit. Dr. Smith also evaluated the patient at bedside while she was unstable and stated that he would hold off on the operating room so the patient could be stabilized and resuscitated prior to surgery for the kidney stone and subsequent stent placement. Critical Care Narrative Aggregate critical care time was 35 minutes. Time to perform other separately billable procedures was not included in the critical care time. My time did not include minutes spent treating any other patients simultaneously or on activities that did not directly contribute to the patient's treatment. The services I provided to this patient were to treat and/or prevent clinically significant deterioration that could result in: Anoxia, hypoxia, arrhythmia, septic shock, . I provided critical care services requiring my management, as noted below: Chart data review, documentation time, medication orders and management, vital sign assessments/reviewing monitor data, ordering and reviewing lab tests, ordering and interpreting/reviewing x-rays and diagnostic studies, care of the patient and discussion of the patient with the admitting physicians. Procedures Procedure Narrative After the risks and benefits were discussed the following procedure was performed: INTUBATION: The patient was put in optimal position for the procedure. Rapid sequence intubation was initiated by me using 20 milligrams of etomidate IV and 100 milligrams of succinylcholine IV. The patient was intubated with a 7.5 cuffed endotracheal tube. Tube placement was confirmed by visualization of the tube and balloon passing through the cords, capnometry and subsequent chest x- ray. Breath sounds were equal and well aerated bilaterally postintubation. No breath sounds over stomach. Patient tolerated procedure well. After the risks and benefits were discussed the following procedure was performed: CENTRAL VENOUS LINE: The site was prepped with Betadine and sterilely draped. It was infiltrated with 1% lidocaine plain. The deep vein was cannulated using normal Seldinger technique. A central line was placed in the right internal jugular site and secured with simple interrupted suture. The site was sterilely dressed. The patient tolerated the procedure well. Sepsis Criteria SIRS Criteria (2 or more): Heart rate over 90, RR > 20 or PaCO2 < 32 Severe Sepsis (+one): Organ Dysfunction, Lactate >2 Septic Shock Criteria: Lactic acid >=4 Criteria Outcome: Meets septic shock criteria Physician Communication Physician Communication I discussed the patient with Dr. Muir and Dr. Smith at bedside. Diagnosis Primary Impression: Septic shock Additional Impressions: Pyelonephritis Nephrolithiasis Lactic acidosis Admitting Information Admitting Physician Requests: Admit Condition: Critical Tai Lauren MD April 17, 2017 21:13
[2017-04-17] MEDS ORDERED: NOREPINEPHRINE 4 MG/4 ML AMP ONE ×2 (21:24→21:25)
--- NOTE | 2017-04-17 21:39 | RADRPT ---
EXAM DATE/TIME: 04/17/2017 21:27 [facility] COMPARISON: CHEST SINGLE AP, April 17, 2017, 16:24. INDICATIONS : Post endotracheal tube placement. MEDICAL HISTORY : Hypertension. Diabetes SURGICAL HISTORY : None. ENCOUNTER: Subsequent ACUITY: 1 day PAIN SCORE: Non-responsive. LOCATION: Bilateral chest FINDINGS: A single portable frontal view the chest shows a right internal jugular vein central venous line. The tip is at the cavoatrial junction. No pneumothorax. Endotracheal tube tip is 2 cm proximal to the ca patrick. Nasogastric tube is coiled within the stomach at the level of the fundus and a hiatal hernia no angela. Left lower lobe atelectasis. Mild cardiomegaly. A degenerative spine. CONCLUSION: 1. Central line without pneumothorax. 2. Tip of endotracheal tube 2 cm from the park. 3. Hiatal hernia. 4. Left basilar atelectasis. 5. Cardiomegaly. Luis Granados Jr., MD on April 17, 2017 at 21:36 Board Certified Radiologist. This report was verified electronically.
[2017-04-17] MEDS ORDERED: RESP: ALBUTEROL 2.5 MG/IPRATROPIUM 0.5 MG NEB (SCH) INH (22:00)
[2017-04-17 22:06] LABS: BLOOD GAS BASE EXCESS -19.2 mmol/L (-2-2); BLOOD GAS CARBOXYHEMOGLOBIN 0.7 % (0-4); BLOOD GAS HCO3 9 mmol/L (22-26); BLOOD GAS METHEMOGLOBIN 0.8 % (0-2); BLOOD GAS O2 HGB SATURATION 92 % (90-100); BLOOD GAS OXYGEN CONTENT 10.3 Vol % (12.0-20.0); BLOOD GAS PCO2 34 mmHg (38-42); BLOOD GAS PO2 100 mmHG (61-120); BLOOD GAS TOTAL HGB 7.8 G/DL (12.0-16.0); TEMP CORR TO 98.6
[2017-04-17 22:07] LABS: CRITICAL VALUE YES; DRAW SITE LT BRACHIAL; FIO2 100 %; NUMBER OF ARTERIAL PUNCTURES 1; OXYGEN DEVICE VENTILATOR; STAT YES; VENT SETTINGS AC/20/500/PEEP 8
[2017-04-18] MEDS: NOREPINEPHRINE-DEXTROSE DRIP 250 ML IV SCH ×2 (00:58→03:31)
[2017-04-18] MEDS ORDERED: VASOPRESSIN INJ 40 UNITS in DEXTROSE 5% IN WATER 100ML INJ 98 ML IV SCH ×2 (01:08)
[2017-04-18 01:10] LABS: BLOOD GAS VENOUS BASE EXCESS -24.8 mmol/L (-2-2); BLOOD GAS VENOUS HCO3 7 mmol/L (22-26); BLOOD GAS VENOUS O2 HGB SAT 35 % (70-76); BLOOD GAS VENOUS PCO2 47 mmHg (44-48); BLOOD GAS VENOUS PO2 39 mmHg (35-40); BLOOD GAS VENOUS pH 6.78 (7.360-7.400); TEMP CORR TO 98.6
[2017-04-18 01:11] LABS: CRITICAL VALUE YES; OXYGEN DEVICE VENTILATOR
[2017-04-18 01:12] LABS: DRAW SITE CENTRAL LINE; FIO2 100 %; STAT YES; VENT SETTINGS AC/20/500/PEEP8
[2017-04-18] MEDS ORDERED: SODIUM BICARBONATE 8.4% INJ 50 ML ONE ×5 (01:26→02:55)
[2017-04-18] MEDS ORDERED: MEROPENEM 1000 MG/NS 100 ML IV SCH ×2 (02:00)
[2017-04-18] MEDS: DOBUTamine 250 MG/D5W 250 ML PREMIX DRIP IV SCH ×2 (02:00→03:30)
[2017-04-18] MEDS ORDERED: AZTREONAM INJ 2,000 MG in SODIUM CHLORIDE 0.9% INJ 100 ML IV SCH (02:00)
[2017-04-18] MEDS ORDERED: ALBUMIN HUMAN 5% 25 GM/500 ML BOTTLE IV SCH (02:00)
[2017-04-18 02:15] LABS: AUTOMATED NEUTROPHIL # 21.1 TH/MM3 (1.8-7.7); BASOPHIL # 0.1 TH/MM3 (0-0.2); BASOPHIL % 0.4 % (0.0-2.0); EOSINOPHIL # 0.1 TH/MM3 (0-0.4); EOSINOPHIL % 0.2 % (0.0-4.0); LYMPHOCYTE # 2.4 TH/MM3 (1.0-4.8); MEAN CELL VOLUME 109.2 FL (80.0-100.0); MEAN CORPUSCULAR HGB CONC 30.2 % (32.0-36.0); MONO % 0.9 % (0.0-8.0); NEUT % 88.5 % (16.0-70.0); PLATELET COUNT 44 TH/MM3 (150-450); RED CELL DISTRIBUTION WIDTH 20.2 % (11.6-17.2); WHITE BLOOD COUNT 23.8 TH/MM3 (4.0-11.0)
[2017-04-18 02:29] LABS: HEMO FLAGS AUTO DIFF
[2017-04-18 02:33] LABS: HEMATOCRIT 19.6 % (35.0-46.0)
[2017-04-18] MEDS ORDERED: metroNIDAZOLE 500 MG INJ 100 ML IV SCH (03:00)
[2017-04-18] MEDS ORDERED: PANTOPRAZOLE SODIUM 40 MG VIAL IV PUSH SCH (03:00)
[2017-04-18 03:27] LABS: BANDS 38 % (0-6); CORRECTED NUCLEATED RBC 9 /100 WBC (0-0); METAMYELOCYTES 4 % (0-1); MYELOCYTES 5 % (0-0); NEUTROPHIL # MANUAL DIFF 21.4 TH/MM3 (1.8-7.7); POLYS (SEG NEUTROPHILS) 43 % (16-70); WBC DIFF SAMPLE 100
[2017-04-18 03:28] LABS: KERATOCYTES 1+ (NORMAL); OVALOCYTES 1+ (NORMAL)
[2017-04-18 03:29] LABS: PLATELET ESTIMATE SMEAR LOW (NORMAL); PLATELET MORPHOLOGY NORMAL (NORMAL); SCAN/DIFF FINAL DIFF MANUAL; TOXIC GRANULATION 1+ (NORMAL); TOXIC VACUOLATION PRESENT (NONE SEEN)
[2017-04-18] MEDS ORDERED: EPINEPHrine HCL (1:10,000) 1 MG/10 ML SYRINGE IV ONE (03:40)
[2017-04-18] MEDS ORDERED: SODIUM BICARBONATE 8.4% INJ 50 MEQ/50 ML SYR IV ONE (03:40)
[2017-04-18] MEDS ORDERED: EPINEPHrine 2 MG/D5W 250 ML IV SCH ×2 (03:45)
[2017-04-18 03:50] VITALS: BP 29/25; PULSE 0; RESP 19
--- NOTE | 2017-04-18 03:51 | HHI.DS ---
Summary Note Date of : April 18, 2017 Time Of : 03:41 Admission Date April 17, 2017 at 18:29 Admitting Diagnosis Severe sepsis Diagnosis at Time of : Brief History 76-year-old female presents after while she was at [facility] getting her nails done she developed vomiting and shortness of breath. She states she had 4 episodes of vomiting. She was tachycardic in route in the 130s. Her blood pressures were stable till when she got here her last blood pressure was a systolic of 70. She was given 4 mg of Zofran. Patient denies any significant pain, fever or other complaints. She told me that she thinks she overdid herself today with too much physical activities. In the emergency department she became extremely short of breath and hypoxemic and was intubated by ER attending for airway protection CBC/BMP: 04/18/17 0200 04/17/17 1615 Significant Findings Laboratory Tests Test 04/17/17 04/17/17 04/17/17 04/17/17 16:15 16:41 18:15 18:55 Red Blood Count 3.47 MIL/MM3 (4.00-5.30) Mean Corpuscular Volume 101.1 FL (80.0-100.0) Red Cell Distribution Width 20.7 % (11.6-17.2) Platelet Count 148 TH/MM3 (150-450) Neutrophils (%) (Auto) 94.4 % (16.0-70.0) Lymphocytes (%) (Auto) 3.9 % (9.0-44.0) Lymphocytes # (Auto) 0.3 TH/MM3 (1.0-4.8) Band Neutrophils % 37 % (0-6) Lymphocytes % 1 % (9-44) Metamyelocytes 5 % (0-1) Myelocytes 1 % (0-0) Nucleated Red Blood Cells 3 /100 WBC (0-0) Toxic Granulation 1+ (NORMAL) Platelet Morphology Comment GIANT (NORMAL) Ovalocytes 1+ (NORMAL) Prothrombin Time 13.4 SEC (9.8-11.6) Activated Partial 22.7 SEC Thromboplast Time (24.3-30.1) Potassium Level 3.4 MEQ/L (3.5-5.1) Blood Urea Nitrogen 27 MG/DL (7-18) Creatinine 1.39 MG/DL (0.50-1.00) Estimat Glomerular Filtration 37 ML/MIN (>89) Rate Random Glucose 122 MG/DL (74-106) Phosphorus Level 1.7 MG/DL (2.5-4.9) Magnesium Level 0.9 MG/DL (1.5-2.5) Aspartate Amino Transf 74 U/L (15-37) (AST/SGOT) Alkaline Phosphatase 169 U/L (45-117) Total Creatine Kinase 271 U/L (26-192) Creatine Kinase MB 3.7 NG/ML (0.5-3.6) Troponin I LESS THAN 0.02 NG/ML (0.02-0.05) Lactic Acid Level 7.2 mmol/L 9.9 mmol/L (0.4-2.0) (0.4-2.0) Urine Turbidity HAZY (CLEAR) Urine Protein 30 mg/dL (NEG-TRACE) Urine Occult Blood SMALL (NEG) Urine Leukocyte Esterase LARGE (NEG) Urine RBC 7 /hpf (0-3) Urine WBC 52 /hpf (0-5) Urine WBC Clumps MANY (NONE) Urine Bacteria FEW /hpf (NONE) Urine Mucus FEW /lpf (OCC) Test 04/17/17 04/18/17 04/18/17 21:15 00:55 02:00 Blood Gas HCO3 9 mmol/L (22-26) Blood Gas Base Excess -19.2 mmol/L (-2-2) Arterial Blood pH 7.05 (7.380-7.420) Arterial Blood Partial 34 mmHg (38-42) Pressure CO2 Arterial Blood Oxygen Content 10.3 Vol % (12.0-20.0) Blood Gas Hemoglobin 7.8 G/DL (12.0-16.0) Lactic Acid Level 14.8 mmol/L (0.4-2.0) Venous Blood pH 6.78 (7.360-7.400) Venous Blood HCO3 7 mmol/L (22-26) Venous Blood Oxygen Saturation 35 % (70-76) Venous Blood Oxygen Content 4.0 Vol % (9.0-17.0) Venous Blood Base Excess -24.8 mmol/L (-2-2) White Blood Count 23.8 TH/MM3 (4.0-11.0) Red Blood Count 1.80 MIL/MM3 (4.00-5.30) Hemoglobin 5.9 GM/DL (11.6-15.3) Hematocrit 19.6 % (35.0-46.0) Mean Corpuscular Volume 109.2 FL (80.0-100.0) Mean Corpuscular Hemoglobin 30.2 % Concent (32.0-36.0) Red Cell Distribution Width 20.2 % (11.6-17.2) Platelet Count 44 TH/MM3 (150-450) Neutrophils (%) (Auto) 88.5 % (16.0-70.0) Neutrophils # (Auto) 21.1 TH/MM3 (1.8-7.7) Band Neutrophils % 38 % (0-6) Neutrophils # (Manual) 21.4 TH/MM3 (1.8-7.7) Metamyelocytes 4 % (0-1) Myelocytes 5 % (0-0) Nucleated Red Blood Cells 9 /100 WBC (0-0) Toxic Granulation 1+ (NORMAL) Toxic Vacuolation PRESENT (NONE SEEN) Platelet Estimate LOW (NORMAL) Ovalocytes 1+ (NORMAL) Keratocytes 1+ (NORMAL) Imaging Last [address] 04/17/171804 Signed Impressions: Service Date/Time: Monday, April 17, 2017 18:59 - CONCLUSION: 1. No acute intrathoracic process. 2. Large hiatal hernia. 3. Cardiomegaly. Luis Granados Jr., MD Abdomen/Pelvis CT 04/17/171804 Signed Impressions: Service Date/Time: Monday, April 17, 2017 18:59 - CONCLUSION: 1. 7 mm proximal ureteral stone on the left just below the UPJ with resulting hydronephrosis. No perinephric fluid collections. 2. Umbilical hernia containing fat. There is mild stranding of the fat. Clinical evaluation for reducibility suggested. 3. Colonic diverticulosis. Luis Granados Jr., MD Chest X-Ray 04/17/17 1606 Signed Impressions: Service Date/Time: Monday, April 17, 2017 16:24 - CONCLUSION: 1. Atelectasis at both lung bases. No acute cardiopulmonary abnormality is identified. 2. Large hiatal hernia. Osvaldo Santana MD Hospital Course Patient has presented in severe sepsis most likely due to pyelonephritis. She was started on broad-spectrum antibiotics. All cultures obtained. While in the emergency department she became more obtunded and short of breath. She was intubated by ED attending for an airway protection as well a central line was placed. Shortly after patient developed hypotension and severe metabolic acidosis. She was started on levo fat layer on added on vasopressin and dobutamine at the maximum doses. Her metabolic acidosis was treated with the sodium bicarbonate drip. She also developed a DIC with severe anemia. Blood transfusion was initiated using a rapid infuser. Despite all aggressive medical management, IV antibiotics, 3 pressors, patient didn't responded to medical therapy and at 3:41 AM. Terry Muir MD April 18, 2017 03:51
[2017-04-18] MEDS ORDERED: CHLORHEXIDINE GLUCONATE 2 % 1 PACK (2 CLOTHS) TOP SCH (04:00)
--- NOTE | 2017-04-18 08:26 | RADRPT ---
EXAM DATE/TIME: 04/18/2017 01:19 [facility] COMPARISON: CHEST SINGLE AP, April 17, 2017, 21:27. INDICATIONS : Respiratory failure. MEDICAL HISTORY : Hypertension. Diabetes. SURGICAL HISTORY : None. ENCOUNTER: Subsequent ACUITY: 1 day PAIN SCORE: 0/10 LOCATION: Bilateral chest FINDINGS: Endotracheal tube is present with tip just above the park. Nasogastric tube descends into the stoma ch. A right neck central line terminates in the SVC. There is consolidative change in the left lung b ase. Mild perihilar parenchymal opacities. Cardiac contours are grossly stable. CONCLUSION: No significant interval change Osvaldo Charlton MD on April 18, 2017 at 1:48 Board Certified Radiologist. This report was verified electronically.
--- NOTE | 2017-04-18 09:33 | EKG ---
Date Performed: 04/17/2017 Time Performed: 16:12:21 PTAGE: 76 years EKG: SINUS TACHYCARDIA INCOMPLETE RIGHT BUNDLE BRANCH BLOCK LEFT ANTERIOR FASCICULAR BLOCK MODER ATE VOLTAGE CRITERIA FOR LVH, CONSIDER NORMAL VARIANT MODERATE ST DEPRESSION ABNORMAL ECG INTERPRETAT ION BASED ON A DEFAULT AGE OF 40 YEARS NO PREVIOUS TRACING DOCTOR: Braulio Day Interpretating Date/Time 04/18/2017 09:31:38
--- NOTE | 2017-04-23 22:12 | PQ ---
Physician Query Response Document PATIENT: COLE EUCEDA : 1940 ADMIT DATE: 04/17/2017 6:29 PM DISCH DATE: 04/18/2017 3:41 AM RESPONDING PROVIDER #: [email or web address] QUERY TEXT: Respiratory Failure Acuity and Type Respiratory Failure is documented in the Medical Record. Please specify the type and acuity (includes suspected or probable) Such as: -- Acute respiratory failure - With hypoxia - With hypercapnia -- Chronic respiratory failure - With hypoxia - With hypercapnia -- Acute on chronic respiratory failure - With hypoxia - With hypercapnia -- Other, please specify If you have any additional questions/comments and/or concerns, please do not hesitate to reach out to the CDI/Coding Hotline, Ext. [phone]. The patient's Clinical Indicators include: ED record documents: the patient developed tachypnea, dropped her O2 saturations, became tachycardic and unstable. Therefore, the patient had to be intubated. H Respiratory failure - Intubated for airway protection - Continue mechanical ventilation - OR tomorrow a.m. - Wean post procedure if hemodynamically stable Query created by: Denae Robbins on 04/20/2017 12:35 PM RESPONSE TEXT: Acute resp failure with hypoxia Electronically signed by: Terry Muir MD 04/23/2017 10:08 PM
== END 2017-04-18 03:41 | disposition expired | DRG 871 ==
LOC: NEPC 15:54 → NEDA 18:29 → HIMW 23:50
PROVIDERS: ADMIT Internal Medicine Critical Care Medicine; ATTEND Internal Medicine Critical Care Medicine
PROC: 0BH17EZ Insertion of Endotracheal Airway into Trachea, Via Natural or Artificial Opening (ICD-10-PCS; principal; 2017-04-17)
PROC: 5A1935Z Respiratory Ventilation, Less than 24 Consecutive Hours (ICD-10-PCS; 2017-04-17)
PROC: 02HV33Z Insertion of Infusion Device into Superior Vena Cava, Percutaneous Approach (ICD-10-PCS; 2017-04-17)
PROC: B548ZZA Ultrasonography of Superior Vena Cava, Guidance (ICD-10-PCS; 2017-04-17)
PROC: 30233R1 Transfusion of Nonautologous Platelets into Peripheral Vein, Percutaneous Approach (ICD-10-PCS; 2017-04-18)
PROC: 30233N1 Transfusion of Nonautologous Red Blood Cells into Peripheral Vein, Percutaneous Approach (ICD-10-PCS; 2017-04-18)
DX: A41.9 Sepsis, unspecified organism (principal); R65.21 Severe sepsis with septic shock; D65 Disseminated intravascular coagulation [defibrination syndrome]; J96.01 Acute respiratory failure with hypoxia; E87.2 Acidosis; E11.9 Type 2 diabetes mellitus without complications; D64.9 Anemia, unspecified; N20.1 Calculus of ureter; N11.1 Chronic obstructive pyelonephritis; I10 Essential (primary) hypertension; Z79.82 Long term (current) use of aspirin; M19.90 Unspecified osteoarthritis, unspecified site; Z96.653 Presence of artificial knee joint, bilateral; K42.9 Umbilical hernia without obstruction or gangrene; Z88.0 Allergy status to penicillin; E78.5 Hyperlipidemia, unspecified; K21.9 Gastro-esophageal reflux disease without esophagitis
CPT/HCPCS: 36430; 36556; 36600; 71010; 71260; 74177; 80053; 81001; 82550; 82552; 82805; 83605; 83690; 83735; 84100; 84484; 85007; 85027; 85610; 85730; 86850; 86900; 86901; 86920; 87040; 87086; 87205; 87641; 87804; 93005; 94002; 94003; 94664; 96360; J0171; J0330; J1250; J2405; J3370; J7030; J7050; J7070; P9016; P9035; P9045; Q9967